=== PATIENT | female | born 1930 | race Caucasian/White ===

== ENCOUNTER 2017-10-15 12:23 | Emergency (ER) | payer MEDICARE, OTHER ==
[2017-10-15 14:58] LABS: #Monocytes 0.8 thou/uL (0.11-0.59); #Neutrophils 7.6 thou/uL (1.40-6.50); %Basophils 0.3 % (0.0-1.0); %Eosinophils 0.1 % (0.0-10.0); %Lymphocytes 18.8 % (21.0-51.0); Hematocrit 30.7 % (36.0-47.0); Mean Platelet Volume 7.3 fL (7.4-10.4); Red Blood Cell (RBC) Count 3.11 mill/uL (4.20-5.40); White Blood Cell (WBC) Count 10.4 thou/uL (4.8-10.8)
[2017-10-15 15:15] LABS: Lactic Acid - Sepsis 0.8 mmol/L (0.5-2.2)
[2017-10-15 15:20] LABS: ALT (SGPT) 64 U/L (8-55); AST (SGOT) 120 U/L (5-34); Alkaline Phosphatase 826 U/L (40-150); Anion Gap 13 mmol/L (10-20); BUN (Urea Nitrogen) 15 mg/dL (9.8-20.1); Bilirubin, Total 2.8 mg/dL (0.2-1.2); CK (CPK) 14 U/L (29-168); Calc. Creatinine Clearance 0 mL/min (70-130); Calcium 7.6 mg/dL (7.8-10.44); Carbon Dioxide 27 mmol/L (23-31); Chloride 96 mmol/L (98-107); Estimated GFR-MDRD 51; Globulin 2.9 g/dL (2.4-3.5)
[2017-10-15 15:23] LABS: Bacteria/HPF 4+ HPF (None Seen); Bilirubin Small (Negative); Blood, Urine Trace (Negative); Glucose, Urine (Dipstick) Negative (Negative); Ketone, Urine Negative (Negative); Nitrite Positive (Negative); Protein, Urine (Dipstick) Trace mg/dL (Neg-Trace); RBC/HPF 21-50 HPF (0-3); Squamous Epithelial 0-3 HPF (0-3); Urobilinogen 0.2 mg/dL (0.2-1.0)
[2017-10-15] MEDS ORDERED: MEROPENEM 1 GM/50 ML 1 GM in Premix Bag 1 BAG IVPB SCH (15:30)
[2017-10-15] MEDS ORDERED: Meropenem 1 GM in Sodium Chloride 0.9% 100 ML IVPB SCH (15:30)
[2017-10-15 15:33] LABS: Hyaline Casts/LPF NONE SEEN LPF (0-3 Hyaline); Yeast-All Forms 2+ HPF (None Seen)
[2017-10-15] MEDS ORDERED: Potassium Chloride 20 MEQ TAB ONE (15:44)
--- NOTE | 2017-10-15 16:46 | SPC ---
EXAM: LEFT UPPER EXTREMITY PICC LINE PLACEMENT WITH ULTRASOUND GUIDANCE 10/15/17 HISTORY: Patient has cancer of the liver. IV access is required. COMPARISON: None. EXPOSURE: 0.5 minutes. 1599 mGy*cm2. FINDINGS: Technically successful left upper extremity PICC line placement with ultrasound guidance. Dual lumen 5 Japanese catheter terminates at the level of the SVC/right atrial junction. Trim length is 42 cm. Bot h lumens flushed and aspirated without difficulty. TECHNIQUE: Consent obtained to perform a left upper extremity PICC line placement. The left arm was prepped and draped in the sterile fashion. 1% lidocaine, buffered with sodium bicarbonate used for local anesthes ia. Under sonographic guidance, micropuncture needle was used to cannulate the brachial vein. A 0.018 guide wire was advanced through the needle to the level of the superior vena cava. Under fluoroscopy , the wire was advanced to the inferior vena cava to document venous access. Wire was subsequently pu lled back to the SVC/right atrial junction. Tract is dilated. Dual lumen 5 Japanese catheter was advanc ed over the wire. Wire was removed. Both lumens flushed and aspirated without difficulty. Trim length is 42 cm. IMPRESSION: Technically successful ultrasound guided left upper extremity PICC line placement. POS: [facility]
[2017-10-15] MEDS ORDERED: Heparin 1,000 UNITS/ML VIAL ONE (17:00)
== END 2017-10-15 18:13 ==
LOC: ERS 12:23
DX: R78.81 Bacteremia (principal)
CPT/HCPCS: 36415; 36569; 80053; 81003; 81015; 82550; 83605; 85025; 96365; J1644; J2185; J7050

== ENCOUNTER 2017-10-16 14:33 | Inpatient (IN) | payer MEDICARE, OTHER ==
[2017-10-16] MEDS ORDERED: Polyethylene Glycol 3350 17 GM Packet PO PRN (15:08)
[2017-10-16] MEDS ORDERED: Eucerin (Mineral Oil/Petrolatum,White) 30 gm Jar TOP PRN (15:08)
[2017-10-16] MEDS ORDERED: Ondansetron ODT 4 MG TAB PO PRN (15:08)
[2017-10-16] MEDS ORDERED: Acetaminophen 325 MG TAB PO PRN ×2 (15:08→18:30)
[2017-10-16] MEDS ORDERED: Diabetic Tussin 200 MG/10 ML UDCUP PO PRN (15:08)
[2017-10-16] MEDS ORDERED: Senokot 8.6 MG TAB PO PRN (15:08)
[2017-10-16] MEDS ORDERED: Ondansetron HCl/PF 4 MG/2 ML Vial IVP PRN (15:08)
[2017-10-16] MEDS ORDERED: Sodium Chloride 0.9% 1,000 ML IV SCH (15:15)
[2017-10-16 15:40] LABS: #Basophils 0.1 thou/uL (0.0-0.2); #Lymphocytes 2.2 thou/uL (1.20-3.40); #Monocytes 0.6 thou/uL (0.11-0.59); #Neutrophils 5.1 thou/uL (1.40-6.50); %Basophils 0.9 % (0.0-1.0); %Eosinophils 0.3 % (0.0-10.0); %Lymphocytes 28.2 % (21.0-51.0); %Monocytes 6.9 % (0.0-10.0); Hematocrit 28.2 % (36.0-47.0); Mean Platelet Volume 7.3 fL (7.4-10.4); Red Blood Cell (RBC) Count 2.85 mill/uL (4.20-5.40); White Blood Cell (WBC) Count 7.9 thou/uL (4.8-10.8)
--- NOTE | 2017-10-16 15:40 | RAD ---
PORTABLE CHEST 10/16/17 COMPARISON: 08/14/17 study. HISTORY: Sepsis, bacteremia. Heart size is within normal limits. Left sided PICC line is present. There has been development of bi lateral pleural effusions with bibasilar lung changes probably on the basis of atelectasis versus ear ly infiltrate. IMPRESSION: Small bilateral pleural effusions with bibasilar lung changes right greater than left probably relate d to atelectasis versus possibly some developing infiltrate in the right base. POS: [facility]
[2017-10-16 16:03] LABS: ALT (SGPT) 64 U/L (8-55); AST (SGOT) 126 U/L (5-34); Alkaline Phosphatase 849 U/L (40-150); Anion Gap 11 mmol/L (10-20); BUN (Urea Nitrogen) 14 mg/dL (9.8-20.1); Bilirubin, Total 2.9 mg/dL (0.2-1.2); Calc. Creatinine Clearance 47 mL/min (70-130); Calcium 7.5 mg/dL (7.8-10.44); Carbon Dioxide 27 mmol/L (23-31); Chloride 99 mmol/L (98-107); Estimated GFR-MDRD 54; Globulin 2.8 g/dL (2.4-3.5); Lipase 34 U/L (8-78); Magnesium 1.1 mg/dL (1.6-2.6); Phosphorus 2.5 mg/dL (2.3-4.7); Protein, Total 4.8 g/dL (6.0-8.3)
[2017-10-16] MEDS ORDERED: Magnesium Sulfate 4 GM in Sodium Chloride 0.9% 250 ML 250 ML IVPB SCH (16:45)
[2017-10-16] MEDS: Meropenem 1 GM, Admixture Fee 1 EACH in Sodium Chloride 0.9% 100 ML IVPB SCH (17:07)
[2017-10-16] MEDS ORDERED: ISOVUE-370 76%-LOCM 1 ML ONE (17:24)
[2017-10-16] MEDS: Vancomycin HCl 1 GM in Premix Bag 1 BAG IVPB SCH (18:19)
--- NOTE | 2017-10-16 19:23 | HP ---
DATE OF ADMISSION: 10/16/2017 PRIMARY CARE PHYSICIAN: Dr. Kareem Jay. PRIMARY BIOMEDICAL ENGINEERING SUPERVISOR: Dr. Faustin. CHIEF COMPLAINT/REASON FOR ADMISSION: Positive blood cultures. 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 Patient was admitted at this facility in July of this year with abnormal LFTs. Her workup was consistent with intrahepatic mass suspected to be cholangiocarcinoma. She was seen by Gastroenterology, Dr. Faustin. She was discharged home and underwent an outpatient biliary stent placement at [place] on 10/17/2017. The patient then moved to [place] with her daughter. While in [place], patient was admitted to [facility] on with abdominal discomfort. She was found to have acute kidney injury with creatinine 3.[address] scan of the abdomen and pelvis was consistent with 14 cm cyst in the left lobe of the liver with mass effect. A CT -guided drain was placed draining around 1500 mL of brownish yellow fluid. Cultures from the fluid showed Enterococcus. She remained on Augmentin until 2 days ago. She was seen by Dr. Faustin 3 days ago. Blood cultures were done after completion of the antibiotic that was positive for gram negative josé miguel. Later blood cultures showed Klebsiella pneumoniae. She presented to the emergency room yesterday and was discharged back after PICC line placement. The patient was sent back to the hospital as a direct admit for antibiotic recommendation by Dr. Nelson. PAST MEDICAL HISTORY: 1. Hypertension. 2. 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 3. Chronic indwelling Rascon catheter due to urinary retention. 4. Enterococcus infection, completed Augmentin on 10/13/2017. 5. History of transient ischemic attack. PAST SURGICAL HISTORY: Biliary stent placement in July, PICC line placement yesterday and abdominal drain placed on 09/14/2017 at [place]. ALLERGIES: No known drug allergies. CURRENT HOME MEDICATIONS: Carvedilol 12.5 mg b.i.d., Floranex 1 tablet b.i.d., losartan 50 mg daily, Zofran as needed and potassium chloride 20 mEq daily. SOCIAL HISTORY: Patient is currently in [facility] facility at [facility] due to profound deconditioning. She denies any history of smoking, alcohol or drug use. FAMILY HISTORY: Negative for premature coronary artery disease. REVIEW OF SYSTEMS: The following complete review of systems was negative, unless otherwise mentioned in the HPI or below: CONSTITUTIONAL: Weight loss or gain, ability to conduct usual activities. SKIN: Rash, itching. EYES: Double vision, pain. ENT/MOUTH: Nose bleeding, neck stiffness, pain, tenderness. CARDIOVASCULAR: Palpitations, dyspnea on exertion, orthopnea. RESPIRATORY: Shortness of breath, wheezing, cough, hemoptysis, fever or night sweats. GASTROINTESTINAL: Poor appetite, abdominal pain, heartburn, nausea, vomiting, constipation, or diarrhea. GENITOURINARY: Urgency, frequency, dysuria, nocturia. MUSCULOSKELETAL: Pain, swelling. NEUROLOGIC/PSYCHIATRIC: Anxiety, depression. ALLERGY/IMMUNOLOGIC: Skin rash, bleeding tendency. PHYSICAL EXAMINATION: VITAL SIGNS: Temperature 97.9, respiration 16, pulse rate of 90, blood pressure of 120/77 with O2 saturation 100% on room air. GENERAL: An 86-year-old female in no apparent distress. Denies any pain. HEENT: Head atraumatic, normocephalic. Sclerae are anicteric. Moist mucous membranes. No oral lesion. NECK: Supple, no JVD appreciated. No carotid bruit. LUNGS: Clear to auscultation bilaterally with diminished air entry at bases. HEART: S1, S2 present. Regular rate and rhythm. No murmur, rubs, or gallops appreciated. ABDOMEN: Soft. No rebound, guarding, intraabdominal drain noted with scanty amount of brownish liquid. Bowel sounds are present. EXTREMITIES: 2+ edema in bilateral lower extremities with calf tenderness. SKIN: Warm and dry. LYMPH NODES: No palpable lymph nodes in the neck. PERIPHERAL VASCULAR: Radial pulses palpable bilaterally. MUSCULOSKELETAL: No joint swelling or tenderness. LYMPH NODES: No palpable lymph nodes in the neck. LABORATORY FINDINGS: 1. CBC showed a WBC 7.9, hemoglobin 9.4, hematocrit 28.2, platelet of 160. Chemistries showed sodium 133, potassium 3.6, chloride of 99, bicarbonate of 27 , BUN of 14, creatinine 0.98, glucose of 81. Lactic acid 0.8, calcium 7.5, phosphorus 2.5, magnesium 1.1. 2. LFTs showed total bilirubin 2.9, AST 126, ALT 64, alkaline phosphatase 849. CRP was 12.8, albumin was 2.0 with total protein of 4.8, lactic acid was 0.8. Repeat blood and urine cultures have been sent. Chest x-ray by my review showed small bilateral pleural effusion with bibasilar atelectasis. IMPRESSION: 1. Klebsiella pneumonia bacteremia suspected source appears to be intraabdominal. 2. Escherichia coli urinary tract infection. 3. Cholangiocarcinoma with liver abscess with indwelling intraabdominal drain. 4. Status post PICC line placement on 10/15/2017. 5. Urinary retention with indwelling Rascon catheter that was changed last week. 6. Hyperlipidemia. 7. Hypertension. 8. History of transient ischemic attack. 9. Moderate protein-calorie malnutrition. 10. Hypomagnesemia with magnesium 1.1. 11. Hypoglycemia secondary to poor appetite. 12. Abnormal liver function tests, probably secondary to cholangiocarcinoma. 13. Chronic anemia, normocytic. 14. Physical deconditioning. 15. Bilateral lower extremity swelling with tenderness, rule out deep venous thrombosis. PLAN: The patient will be monitored on the medical floor. CT scan of the abdomen and pelvis with oral and IV contrast will be obtained. Infectious Disease and GI will be consulted. Empiric antibiotics with vancomycin and meropenem will be initiated. The klebsiella pneumonia is only sensitive to Bactrim. We will discuss with Dr. Nelson. DVT prophylaxis with heparin. We will also rule out DVT due to recent immobilization and lack of activity. Dietitian will be consulted for dietary recommendations. The patient's albumin is 2.0. We will continue potassium supplementation. Patient had hypokalemia yesterday with potassium 3.0. We will repeat labs in a.m. Plan of care was discussed with the patient and the family at the bedside. They stated understanding. CODE STATUS: FULL CODE. The patient makes her own decisions with the help of her family. The patient will require 3-4 days for stabilization. MTDD
[2017-10-16 19:42] LABS: Bilirubin Small (Negative); Blood, Urine Negative (Negative); Glucose, Urine (Dipstick) Negative (Negative); Ketone, Urine Negative (Negative); Nitrite Positive (Negative); Protein, Urine (Dipstick) Trace mg/dL (Neg-Trace)
[2017-10-16 19:44] LABS: Bacteria/HPF 4+ HPF (None Seen); Squamous Epithelial None Seen HPF (0-3)
[2017-10-16 19:56] LABS: Yeast-All Forms 1+ HPF (None Seen)
--- NOTE | 2017-10-16 20:40 | CT ---
CT ABDOMEN AND PELVIS WITH CONTRAST 10/16/17 HISTORY: Sepsis. COMPARISON: CT abdomen and pelvis 08/14/17. FINDINGS: There are large bilateral layering pleural effusions. No pericardial effusion. Severe intrahepatic b iliary dilatation. This is predominantly of the right sided biliary system. The left sided biliary sy stem appears to be drained via the CBD stent. The hepatic mass appears to be increasing in size, now measuring approximately 4.5 x 4.8 cm, previous ly 3.6 x 4.2 cm. There is a drain on the gastrohepatic ligament with peripherally enhancing collection deep to this an d along the left sided margin of the liver with subcapsular spread of fluid. This attenuates along th e caudate lobe. Overall, this collection in greatest dimensions measures 2.7 x 2.7 x approximately 7. 7 cm. Soft tissue mass surrounds the gastroduodenal artery. There is edema within both flanks. Aortic contour is nonaneurysmal. There are bilateral renal cysts. Moderate degenerative disc space disease of the lower lumbar spine. IMPRESSION: 1. Peripherally enhancing fluid collection deep to the gastrohepatic drain measuring 2.7 x 2.7 x approximately 7.7 cm. 2. Adequately drained left intrahepatic biliary system with continued obstruction right intrahep atic biliary system. 3. Interval slight increase of the hepatic mass with mass surrounding the gastroduodenal artery. POS: [facility]
[2017-10-16] MEDS: Sodium Chloride 0.9% 1,000 ML IV SCH (21:00)
[2017-10-16] MEDS ORDERED: Famotidine 20 MG TAB PO SCH (21:00)
[2017-10-16] MEDS: Lactinex Tablet PO SCH (21:07)
[2017-10-16] MEDS: Docusate 100 MG CAP PO SCH (21:07)
[2017-10-16] MEDS: Heparin 5,000 UNITS/ML VIAL SC SCH (21:07)
[2017-10-17] MEDS: Meropenem 1 GM, Admixture Fee 1 EACH in Sodium Chloride 0.9% 100 ML IVPB SCH ×4 (00:32→23:51)
[2017-10-17 04:27] LABS: #Basophils 0.1 thou/uL (0.0-0.2); #Eosinphils 0.1 thou/uL (0.0-0.7); #Monocytes 0.6 thou/uL (0.11-0.59); #Neutrophils 3.7 thou/uL (1.40-6.50); %Basophils 0.9 % (0.0-1.0); %Eosinophils 1.1 % (0.0-10.0); %Lymphocytes 31.9 % (21.0-51.0); %Monocytes 9.3 % (0.0-10.0); Hematocrit 27.1 % (36.0-47.0); Mean Platelet Volume 7.1 fL (7.4-10.4); Red Blood Cell (RBC) Count 2.73 mill/uL (4.20-5.40); White Blood Cell (WBC) Count 6.4 thou/uL (4.8-10.8)
[2017-10-17 04:29] LABS: PTT 34.9 SEC (22.9-36.1); Prothrombin Time 15.2 SEC (12.0-14.7)
[2017-10-17 04:42] LABS: ALT (SGPT) 62 U/L (8-55); AST (SGOT) 121 U/L (5-34); Alkaline Phosphatase 777 U/L (40-150); Anion Gap 11 mmol/L (10-20); BUN (Urea Nitrogen) 12 mg/dL (9.8-20.1); Bilirubin, Total 2.7 mg/dL (0.2-1.2); Calc. Creatinine Clearance 50 mL/min (70-130); Calcium 7.3 mg/dL (7.8-10.44); Carbon Dioxide 27 mmol/L (23-31); Chloride 100 mmol/L (98-107); Estimated GFR-MDRD 59; Globulin 2.6 g/dL (2.4-3.5); Magnesium 2.2 mg/dL (1.6-2.6); Phosphorus 2.4 mg/dL (2.3-4.7); Protein, Total 4.4 g/dL (6.0-8.3)
[2017-10-17] MEDS ORDERED: Carvedilol 3.125 MG TAB PO SCH (08:00)
[2017-10-17] MEDS: Docusate 100 MG CAP PO SCH ×2 (08:23→20:43)
[2017-10-17] MEDS: Famotidine 20 MG TAB PO SCH (08:24)
[2017-10-17] MEDS: Carvedilol 6.25 MG TAB PO SCH ×2 (08:24→16:49)
[2017-10-17] MEDS: Potassium Chloride 20 MEQ TAB PO SCH (08:25)
[2017-10-17] MEDS: Saccharomyces boulardii 250 MG CAP PO SCH (08:26)
[2017-10-17] MEDS: Multivit, Therapeutic 1 TAB PO SCH (08:26)
[2017-10-17] MEDS: Lactinex Tablet PO SCH ×2 (08:27→20:44)
[2017-10-17] MEDS: Heparin 5,000 UNITS/ML VIAL SC SCH ×2 (08:27→20:45)
[2017-10-17] MEDS ORDERED: Folic Acid 1 MG TAB PO SCH (09:00)
[2017-10-17] MEDS ORDERED: FLU VACC TS2017-18 (>65YR) 0.5 ML SYRINGE IM ONE (09:00)
[2017-10-17] MEDS ORDERED: Cyanocobalamin (Vitamin B-12) 1,000 MCG TAB PO SCH (09:00)
--- NOTE | 2017-10-17 11:13 | ULT ---
BILATERAL LOWER EXTREMITY VENOUS DUPLEX EXAM: Date: 10/17/17 HISTORY: Bilateral leg edema and pain. FINDINGS: Real-time color Doppler evaluation of the right and left lower extremity was performed from groin to calf. This includes evaluation of the common femoral, superficial and profunda femoral, saphenous, po pliteal, and trifurcation veins. This shows patent deep venous systems bilaterally. There is normal c ompressibility and augmentation. There is no evidence of deep venous thrombosis. Within the right groin is a 1.7 x 3.3 cm fluid density collection which does not show any flow. In re viewing the previous CT examination of 10/16/17 study, there is some fluid density in this region. It may actually arise from the inguinal canal. It is not felt to be of any significance. It does not ap pear to represent bowel. IMPRESSION: No evidence of deep venous thrombosis of either lower extremity. POS: [facility]
[2017-10-17] MEDS: Sodium Chloride 0.9% 1,000 ML IV SCH (14:23)
--- NOTE | 2017-10-17 16:41 | CON ---
DATE OF CONSULTATION: 10/17/2017 GASTROENTEROLOGY CONSULTATION CHIEF COMPLAINT: Weakness and positive blood cultures. HISTORY OF PRESENT ILLNESS: Ms. Goldman is an 86-year-old woman who presented in 07/2017 with epiga stric pain and elevated liver tests and was found to have a cholangiocarcinoma, presented with a Klat skin tumor and she was then referred for ERCP in [place] by Dr. Loving. He performed SpyGlass and biopsies and confirmed cholangiocarcinoma diagnosis. Two metal stents were then placed in the bile duct. The patient was then referred to Oncology and the family took her to [place] to see an onc ologist and while there she became sick and weak and she was admitted to the hospital for further car e. She was found to have a large abscess in the liver and a percutaneous drain was then placed. The family reports that 1500 mL of white pus were aspirated with the drain and she was then started on a 5-week course of antibiotics. She was initially treated with IV antibiotics for the first 3 weeks a nd then oral antibiotics for a couple weeks which she just finished a few days ago. While she was in the hospital in [place], she developed some rectal bleeding and underwent a colonoscopy. She wa s found to have a metal stent that the lower metal stent had migrated out of the bile duct and into t he intestine. This was removed by colonoscopy. She saw Dr. Faustin in the clinic on 10/14/2017. She was eating okay and was not having any abdominal pain. At this point, the service in [place] hall d recommended checking blood cultures and removing the percutaneous drain. She has been at the [facility] and blood cultures were drawn. These blood cultures came back positive for Klebsiella and th erefore, the patient was sent back to the hospital now for further treatment. Currently, she reports no abdominal pain, no nausea or vomiting, no diarrhea or constipation. No fever, no other significa nt complaints. She had been weaker and sleeping more over the last few weeks; however, this past wee k she has been feeling better. In light of the positive blood cultures, she has been started on broa d spectrum antibiotics with meropenem and vancomycin. Repeat blood culture here in the hospital have grown gram negative rods. Blood culture from 10/14/2017 grew Klebsiella pneumoniae in 2 sets, urine culture back in 07/2017 that grew E. coli. PAST MEDICAL HISTORY: Cholangiocarcinoma, perihepatic abscess, hypertension, hyperlipidemia. PAST SURGICAL HISTORY: She has had a PICC line placed recently and she has an abdominal percutaneous abscess drain in place. She has a metal biliary stent in place. FAMILY HISTORY: Negative for GI malignancy. SOCIAL HISTORY: No alcohol, tobacco or drugs. She is a resident at [facility]. ALLERGIES: No known drug allergies. MEDICATIONS AT HOME: Carvedilol, colistimethate, docusate, famotidine, folic acid, heparin 5000 unit s subcu b.i.d., meropenem, vancomycin. She has been on probiotics at home. REVIEW OF SYSTEMS: Negative x10 systems review except as stated in the history of present illness. PHYSICAL EXAMINATION: VITAL SIGNS: Temperature 97.6, pulse 76, blood pressure 109/68. GENERAL: She is in no acute distress, alert and oriented x3. EYES: Have no scleral icterus. OROPHARYNX: Clear without lesions. NECK: No cervical or supraclavicular lymphadenopathy. LUNGS: Clear to auscultation bilaterally. HEART: Regular rate and rhythm without murmur. ABDOMEN: Soft, nontender, and nondistended. Bowel sounds are present. EXTREMITIES: No lower extremity edema. She has a percutaneous drain in place in the epigastric fco on. Cranial nerves are grossly intact. LABORATORY DATA: White blood cell count 6.4, hemoglobin 8.8, platelets 143, INR 1.2. Bilirubin 2.7, AST 121, ALT 62, alkaline phosphatase 777, albumin 1.8, creatinine 0.91. IMPRESSION: 1. Cholangiocarcinoma. She has opted for no treatment for this. She discussed with her oncologist' s options including chemotherapy, chemoembolization, and radiation therapy. She is ultimately opted for no specific treatment. 2. Perihepatic abscess. She had a large abscess drained and has percutaneous drain still in place. CT scan now shows another fluid collection which may be subcapsular and separate from the original d rain. On review with Radiology, they felt that this is not likely accessible given its proximity to the erika hepatis and great vessels. Her current drain is having minimal output at this point. 3. 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 She has a metal biliary stent in place. 4. Protein calorie malnutrition. RECOMMENDATIONS: She is being evaluated by Dr. Nelson. She has a PICC line in place for IV antibioti cs. If replacement of the drain is not an option, then supportive care and IV antibiotics will be di rected by Dr. Nelson. We will await his input.
[2017-10-17] MEDS: Vancomycin HCl 1 GM in Premix Bag 1 BAG IVPB SCH (16:49)
--- NOTE | 2017-10-17 18:49 | PDOC.PN ---
- Subjective Encounter Start Date: 10/17/17 Encounter Start Time: 08:00 Patient seen and examined. No new complaints. No overnight events. Feels the same. No N/V - Objective Resuscitation Status: Resuscitation Status FULL:Full Resuscitation MAR Reviewed: Yes Vital Signs & Weight: Vital Signs (12 hours) Temp Pulse Resp BP BP Pulse Ox 10/17/17 16:49 94/56 L 10/17/17 16:00 97.6 F 68 91 H 94/56 L 16 L 10/17/17 12:44 97.6 F 76 18 109/68 94 L 10/17/17 08:24 123/73 10/17/17 08:00 97.4 F L 62 18 123/73 96 Weight Admit Weight 152 lb 8.006 oz Weight 152 lb 8.006 oz I&O: 10/16/17 10/17/17 10/18/17 06:59 06:59 06:59 Intake Total 1630 200 Output Total 675 Balance 955 200 Result Diagrams: 10/17/17 03:51 10/17/17 03:51 Additional Labs: Accuchecks 10/17/17 10/17/17 10/17/17 16:49 11:31 04:44 POC Glucose 114 H 84 81 10/17/17 00:43 POC Glucose 92 Radiology Reviewed by me: No (Doppler - no DVT) Phys Exam - Physical Examination Constitutional: NAD Respiratory: no wheezing, no rales, no rhonchi Dec AE at bases Cardiovascular: RRR, no rub no heaves/pulsations Gastrointestinal: soft, non-tender, no distention, positive bowel sounds Abd drain + Musculoskeletal: pulses present, edema present Neurological: non-focal, normal sensation, moves all 4 limbs Dx/Plan - Plan cont current plan of care, plan discussed w/ family, roberto catheter, PT/OT, DVT proph w/SCDs IMPRESSION: 1. Klebsiella pneumonia bacteremia/Perihepatic abscess. 2. Escherichia coli urinary tract infection. 3. Cholangiocarcinoma - declined treatment 4. Status post PICC line placement on 10/15/2017. 5. Urinary retention with indwelling Roberto catheter that was changed last week. 6. Hyperlipidemia. 7. Hypertension. 8. History of transient ischemic attack. 9. Moderate protein-calorie malnutrition. 10. Hypomagnesemia - replaced 11. Hypoglycemia secondary to poor appetite. 12. Abnormal liver function tests, probably secondary to cholangiocarcinoma. 13. Chronic anemia, normocytic. 14. Physical deconditioning. 15. Bilateral lower extremity swelling with tenderness, rule out deep venous thrombosis. PLAN: * Cont Atbx * DVT ruled out * Cont Vancomycin and Meropenem * Await GI/ID input * Cont other meds as below * AM labs Review of Systems - Review of Systems Respiratory: negative: Cough, Dry, Shortness of Breath, Hemoptysis, SOB with Excertion, Pleuritic Pain, Sputum, Wheezing Cardiovascular: negative: Chest Pain, Palpitations, Orthopnea, Paroxysmal Noc. Dyspnea, Edema, Light Headedness, Other Gastrointestinal: negative: Nausea, Vomiting, Abdominal Pain, Diarrhea, Constipation, Melena, Hematochezia, Other - Medications/Allergies Allergies/Adverse Reactions: Allergies Allergy/AdvReac Type Severity Reaction Status Date / Time No Known Allergies Allergy Verified 08/14/17 17:19 Medications: Current Medications Acetaminophen (Tylenol) 325 mg PO Q6H PRN PRN Reason: Headache/Fever or Pain Acidophilus (Floranex) 1 tab PO BID [facility] Last Admin: 10/17/17 08:27 Dose: 1 tab Carvedilol (Coreg) 6.25 mg PO BID-WM [facility] Last Admin: 10/17/17 16:49 Dose: Not Given Docusate Sodium (Colace) 100 mg PO BID [facility] Last Admin: 10/17/17 08:23 Dose: Not Given Famotidine (Pepcid) 20 mg PO QAM [facility] Last Admin: 10/17/17 08:24 Dose: Not Given Folic Acid (Folvite) 1 mg PO BID [facility] Guaifenesin (Robitussin Sf) 200 mg PO Q4H PRN PRN Reason: Cough Heparin Sodium (Porcine) (Heparin) 5,000 units SC BID [facility] Last Admin: 10/17/17 08:27 Dose: Not Given Meropenem 1 gm/ Miscellaneous Medication 1 each/ Sodium Chloride 100 mls @ 200 mls/hr IVPB 0800,1600,2359 [facility] Last Admin: 10/17/17 15:28 Dose: 100 mls Vancomycin HCl 1 gm/ Device 200 mls @ 200 mls/hr IVPB 1700 [facility] Last Admin: 10/17/17 16:49 Dose: 200 mls Sodium Chloride (Normal Saline 0.9%) 1,000 mls @ 50 mls/hr IV .Q20H [facility] Last Admin: 10/17/17 14:23 Dose: Not Given Colistimethate Sodium 275 mg/ (Sodium Chloride) 50 mls @ 100 mls/hr IVPB 1000 [facility] Last Admin: 10/17/17 11:12 Dose: 50 mls Colistimethate Sodium 112 mg/ (Sodium Chloride) 50 mls @ 100 mls/hr IVPB 1000, 2200 [facility] Mineral Oil/White Petrolatum (Eucerin Cream) 0 gm TOP BIDPRN PRN PRN Reason: Dry Skin Miscellaneous Medication (Pharmacy To Dose) 1 each IVPB PRN PRN PRN Reason: Pharmacy to dose Multivitamins (Theragran) 1 tab PO DAILY [facility] Last Admin: 10/17/17 08:26 Dose: 1 tab Ondansetron HCl (Zofran Odt) 4 mg PO Q6H PRN PRN Reason: Nausea/Vomiting Ondansetron HCl (Zofran) 4 mg IVP Q6H PRN PRN Reason: Nausea/Vomiting Polyethylene Glycol (Miralax) 17 gm PO DAILY PRN PRN Reason: Constipation Potassium Chloride (K-Dur) 20 meq PO QAM-WM [facility] Last Admin: 10/17/17 08:25 Dose: 20 meq Saccharomyces Boulardii (Florastor) 250 mg PO DAILY [facility] Last Admin: 10/17/17 08:26 Dose: 250 mg Senna (Senokot) 2 tab PO HSPRN PRN PRN Reason: Constipation Sodium Chloride (Flush - Normal Saline) 10 ml IVF Q12HR [facility] Last Admin: 10/17/17 08:28 Dose: Not Given Sodium Chloride (Flush - Normal Saline) 10 ml IVF PRN PRN PRN Reason: Saline Flush
[2017-10-17] MEDS: Folic Acid 1 MG TAB PO SCH (20:45)
[2017-10-18 04:37] LABS: #Eosinphils 0.2 thou/uL (0.0-0.7); #Lymphocytes 2.6 thou/uL (1.20-3.40); #Monocytes 0.7 thou/uL (0.11-0.59); #Neutrophils 3.5 thou/uL (1.40-6.50); %Basophils 0.6 % (0.0-1.0); %Eosinophils 2.6 % (0.0-10.0); %Lymphocytes 36.6 % (21.0-51.0); %Monocytes 10.4 % (0.0-10.0); Hematocrit 26.6 % (36.0-47.0); Mean Platelet Volume 7.4 fL (7.4-10.4); Red Blood Cell (RBC) Count 2.66 mill/uL (4.20-5.40)
[2017-10-18 04:46] LABS: Anion Gap 8 mmol/L (10-20); BUN (Urea Nitrogen) 13 mg/dL (9.8-20.1); BUN/Creatinine Ratio 12.87; Calc. Creatinine Clearance 45 mL/min (70-130); Calcium 7.2 mg/dL (7.8-10.44); Carbon Dioxide 28 mmol/L (23-31); Chloride 102 mmol/L (98-107); Estimated GFR-MDRD 52; Magnesium 1.8 mg/dL (1.6-2.6); Phosphorus 2.6 mg/dL (2.3-4.7)
--- NOTE | 2017-10-18 06:59 | CON ---
DATE OF CONSULTATION: 10/17/2017 REASON FOR CONSULTATION: Bacteremia. HISTORY OF PRESENT ILLNESS: An 86-year-old with history of hypertension, recently diagnosed cholangiocarcinoma, who received biliary stent placement in [place] in 10/17 and then apparently went [place] for second opinion. She was then admitted to [facility], was found to have renal insufficiency with creatinine 3.[address] of abdomen showed 14 cm liver mass. A CT-guided drainage was performed and 1500 mL of purulent fluid was obtained with cultures demonstrating Enterococcus species. This was broadly sensitive and she was given 3 weeks of intravenous antimicrobial therapy and then transitioned to oral Augmentin which she took for 2 weeks. She was seen by Dr. Faustin and apparently blood cultures were submitted and those turned up on my desk in the clinic and I realized that the organism is highly resistant pathogen , the patient was directed to be admitted. Currently, she is awake. Daughter is in the room with her. Denies any headaches, no visual symptoms, sore throat , odynophagia, dysphagia, no cough, or sputum production, or chest pain. She has a little bit of dyspnea, much less abdominal pain than before. She has issues with urinary retention and has had a Rascon catheter now for about a month and a half. No joint symptoms. No neurological symptoms. PAST MEDICAL HISTORY: Hypertension; cholangiocarcinoma with palliative stent placement, no intention for any type of treatment desired by patient; enterococcal infection; liver abscess, recently aspirated in [facility], having completed 3 weeks course of IV antimicrobial therapy and then 2 weeks course of oral Augmentin; prior TIA. PAST SURGICAL HISTORY: As above, PICC line placement and then replacement just a day before yesterday. She also had a biliary catheter placed in [place] for drainage of the biliary tract. ALLERGIES: None. CURRENT MEDICATIONS: Tylenol, Floranex and Coreg. She has been started on colistin and meropenem, IV fluids, multivitamins, ondansetron, Miralax, potassium, Florastor, and vancomycin. FAMILY HISTORY: Noncontributory. PHYSICAL EXAMINATION: VITAL SIGNS: T-max 97.9, blood pressure 94/56, pulse 68, respirations 16, O2 sat 91%. SKIN: With no areas of skin breakdown. Patient has a PICC line inserted in the left upper extremity. She has a Rascon catheter in place. No lymphadenopathy. HEENT: Ocular movements are conjugate. Sclerae are white. Pupils are equal. Oral cavity with numerous teeth in place with some decay. NECK: Supple. No jugular vein distention or carotid bruits. No thyromegaly. LUNGS: With symmetric clear breath sounds. HEART: S1, S2, regular rate. No S3 or S4. ABDOMEN: With the right upper quadrant percutaneous drainage, biliary drain in place. Abdomen is soft. Not tender. No ascites. No bladder distention. EXTREMITIES: No joint inflammatory activity. Pulses are 1+ in dorsalis pedis. Plantar responses are flexor. Moves all extremities equally. NEUROLOGIC: Cognitive function appears to be intact. LABORATORY AND DIAGNOSTIC DATA: White cell count 7.9 and 6.4, hemoglobin 8.8, platelets 143, 56% neutrophils and 31% lymphocytes. INR 1.2. Sodium 134, creatinine 0.91 with AST 121, ALT 62, alkaline phosphatase 777 with albumin 1.8. Urinalysis greater than 50 wbc's. Microbiology with Klebsiella pneumoniae , which is highly resistant only intermediate to amikacin and susceptible to trimethoprim sulfamethoxazole. Chest x-ray with small bilateral pleural effusions, bibasilar lung changes, right greater than left and abdomen and pelvis CT with peripheral enhancing fluid collection deep to the gastrohepatic drain, measuring 2.7 x 7.7 cm and adequately drain left intrahepatic biliary system, which continued with obstruction of the right intrahepatic biliary system and with slight increase in hepatic mass with surrounding the gastroduodenal artery. ASSESSMENT: 1. Cholangiocarcinoma with biliary obstruction, status post stenting and percutaneous drainage. It is not clear if it truly has a stent, it looks like she does not, she probably has just a percutaneous drainage with palliative intent. 2. Liver abscess versus necrotic malignancy with superimposed infection. 3. Bacteremia with a highly resistant probably carbapenemase producing Klebsiella pneumoniae. DISCUSSION: The isolate is highly resistant to pretty much all available antimicrobials in the formulary except for Bactrim. She is admitted for adjustment of antimicrobial regimen with colistin plus meropenem. The patient surprisingly does not have signs to suggest sepsis at this point in time, but may become septic anytime. Evidently, this is an intervention that will have limited success in terms of resolution of infectious process due to the persistence of obstruction and the incurable malignancy. Discussions regarding palliative and hospice care should be entertained since she will likely experience recrudescence of the inflammatory process. The duration of therapy will be anywhere from 7-10 days and trying to avoid the renal insufficiency associated with colistin after that transition to oral Bactrim for 2-3 weeks. She can be transitioned to the [place] in 2 days approximately, although careful monitoring her for renal function will have to be undertaken. I would establish the endpoint of therapy around 10/27/2017. Repeat blood cultures in 2 -3 days to verify resolution of bacteremia. MTDD
[2017-10-18] MEDS: Carvedilol 6.25 MG TAB PO SCH ×2 (08:14→16:09)
[2017-10-18] MEDS: Meropenem 1 GM, Admixture Fee 1 EACH in Sodium Chloride 0.9% 100 ML IVPB SCH ×2 (08:15→15:51)
[2017-10-18] MEDS: Famotidine 20 MG TAB PO SCH (08:15)
[2017-10-18] MEDS: Saccharomyces boulardii 250 MG CAP PO SCH (08:15)
[2017-10-18] MEDS: Folic Acid 1 MG TAB PO SCH ×2 (08:16→20:49)
[2017-10-18] MEDS: Docusate 100 MG CAP PO SCH ×2 (08:16→20:28)
[2017-10-18] MEDS: Lactinex Tablet PO SCH ×2 (08:16→20:49)
[2017-10-18] MEDS: Heparin 5,000 UNITS/ML VIAL SC SCH ×2 (08:16→20:49)
[2017-10-18] MEDS: Multivit, Therapeutic 1 TAB PO SCH (08:16)
[2017-10-18] MEDS: Potassium Chloride 20 MEQ TAB PO SCH (08:16)
[2017-10-18] MEDS: Sodium Chloride 0.9% 1,000 ML IV SCH ×2 (09:38→20:49)
[2017-10-18] MEDS: SODIUM CHLORIDE 0.9% IVPB SCH ×2 (11:16→22:32)
[2017-10-18] MEDS: COLISTIMETHATE IVPB SCH ×2 (11:16→22:32)
--- NOTE | 2017-10-18 11:29 | PDOC.PN ---
- Subjective Encounter Start Date: 10/18/17 Encounter Start Time: 11:27 Ms. Goldman was seen today in follow-up of Liver abscess and Klebsiella bacteremia. She says she feels fine. She denies abdominal pain, and admits to a little nausea. She did feel a little dizzy earlier. - Objective Resuscitation Status: Resuscitation Status FULL:Full Resuscitation MAR Reviewed: Yes Vital Signs & Weight: Vital Signs (12 hours) Temp Pulse Resp BP BP Pulse Ox 10/18/17 08:14 94/56 L 10/18/17 08:00 97.8 F 82 20 93/60 92 L 10/18/17 04:00 97.5 F L 95 18 102/72 93 L 10/18/17 00:00 97.7 F 93 18 95/68 93 L Weight Admit Weight 152 lb 8.006 oz Weight 152 lb I&O: 10/17/17 10/18/17 10/19/17 06:59 06:59 06:59 Intake Total 1630 1125 360 Output Total 675 Balance 955 1125 360 Result Diagrams: 10/18/17 04:14 10/18/17 04:14 Additional Labs: Accuchecks 10/18/17 10/17/17 10/17/17 00:36 16:49 11:31 POC Glucose 87 114 H 84 Phys Exam - Physical Examination HEENT: PERRLA Respiratory: no wheezing, no rales, no rhonchi, clear to auscultation bilateral Cardiovascular: RRR, no significant murmur Gastrointestinal: soft, non-tender, positive bowel sounds Musculoskeletal: no edema Dx/Plan (1) Bacteremia due to Klebsiella pneumoniae Code(s): R78.81 - BACTEREMIA Status: Acute (2) Abscess, hepatic Code(s): K75.0 - ABSCESS OF LIVER Status: Acute (3) Hypertension Code(s): I10 - ESSENTIAL (PRIMARY) HYPERTENSION Status: Chronic (4) 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 Status: Suspected - Plan * Klebsiella Bacteremia- patient has been placed on Colistin, and will need this until 10/27, followed by Bactrim for 2-3 weeks * Liver abscess due to enterococcus- continue Meropenem and Vancomycin * HTN- blood pressure is running a bit low- may need to hold Coreg * Cholangiocarcinoma- patient has opted for no medical treatment * Await outpatient arrangements for Colistin.
[2017-10-18 16:35] LABS: Vancomycin, Trough 16.6 ug/mL
[2017-10-18] MEDS: Vancomycin HCl 1 GM in Premix Bag 1 BAG IVPB SCH (16:49)
--- NOTE | 2017-10-18 23:37 | PRG ---
DATE OF SERVICE: 10/18/2017 SUBJECTIVE: Ms. Goldman has no acute complaints today. Her percutaneous drain has very little outp ut. OBJECTIVE: VITAL SIGNS: Temperature 97.7, pulse 86, blood pressure 112/72. GENERAL: She is in no acute distress. She is alert and oriented x3. LUNGS: Clear to auscultation bilaterally. HEART: Regular rate and rhythm without murmur. ABDOMEN: Soft, nontender, nondistended. Bowel sounds are present. EXTREMITIES: No lower extremity edema. IMPRESSION: 1. Liver abscess with multidrug-resistant organisms. She has had a drain in place for the last 5 or 6 weeks. There does appear to be another fluid collection that may not be communicating with the dr barry; however, this is not apparently accessible by percutaneous drainage. Treatment at this point is IV antibiotics. She is being followed by Dr. Nelson for this and is awaiting arrangements for outpat ient antibiotic IV. 2. Cholangiocarcinoma. She has opted against aggressive treatment for this. 3. 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 She has a metal biliary stent in place. 4. Protein-calorie malnutrition. RECOMMENDATIONS: 1. She has a PICC line in place. She is awaiting arrangements for outpatient antibiotics. This is being followed by Dr. Nelson. 2. She ultimately will require hospice care for the cholangiocarcinoma. 3. I will sign off for now. Please call if GI can be of assistance. Currently, the patient is doin g well without pain. She is tolerating diet well.
[2017-10-19] MEDS: Meropenem 1 GM, Admixture Fee 1 EACH in Sodium Chloride 0.9% 100 ML IVPB SCH ×3 (00:40→16:47)
[2017-10-19] MEDS: Carvedilol 6.25 MG TAB PO SCH ×2 (08:38→16:52)
[2017-10-19] MEDS: Folic Acid 1 MG TAB PO SCH ×2 (08:40→21:33)
[2017-10-19] MEDS: Famotidine 20 MG TAB PO SCH (08:40)
[2017-10-19] MEDS: Lactinex Tablet PO SCH ×2 (08:40→21:33)
[2017-10-19] MEDS: Potassium Chloride 20 MEQ TAB PO SCH (08:40)
[2017-10-19] MEDS: Multivit, Therapeutic 1 TAB PO SCH (08:40)
[2017-10-19] MEDS: Saccharomyces boulardii 250 MG CAP PO SCH (08:40)
[2017-10-19] MEDS: Docusate 100 MG CAP PO SCH ×2 (08:41→21:34)
[2017-10-19] MEDS: Heparin 5,000 UNITS/ML VIAL SC SCH ×2 (08:41→21:34)
[2017-10-19] MEDS: SODIUM CHLORIDE 0.9% IVPB SCH ×2 (10:05→21:34)
[2017-10-19] MEDS: COLISTIMETHATE IVPB SCH ×2 (10:05→21:34)
--- NOTE | 2017-10-19 12:21 | PRG ---
DATE OF SERVICE: 10/19/2017 SUBJECTIVE: Ms. Goldman is feeling a little better. No headaches, no abdominal pain, no dyspnea, n o cough, no appendicular structure symptoms. OBJECTIVE: VITAL SIGNS: Temperature is normal, other vital signs normal. GENERAL: Appears chronically ill. HEENT: Ocular movements are conjugate. Oral cavity moist. LUNGS: With symmetric air entry. No crackles or wheezing. HEART: S1, S2, regular rate. ABDOMEN: Not tender. EXTREMITIES: Moves all extremities equally. LABORATORY DATA: White cell count 7.0, hemoglobin 8.8, platelets 132. Creatinine 1.01, sodium 134, albumin 1.8. Urinalysis with greater than 50 wbc's. Urine culture with Klebsiella pneumoniae, pendi ng susceptibilities. ASSESSMENT AND DISCUSSION: 1. Cholangiocarcinoma with biliary obstruction, status post stenting/percutaneous drainage for palli ative drainage of the biliary obstruction. 2. Liver abscess versus necrotic malignancy with possible superimposed infection. 3. Bacteremia secondary to highly resistant, likely carbapenemase producing Klebsiella pneumoniae. 4. Urinary tract infection. It looks like to Klebsiella bacteremia secondary to the urinary tract i nfection, continue meropenem and Colistin for a total of 10-14 days and then discontinue treatment. Patient apparently needs a Rascon catheter for urinary retention. This may have to be revisited, but most likely she will continue to maintain the urinary catheter since she failed a voiding trial in e past.
--- NOTE | 2017-10-19 15:22 | PDOC.PN ---
- Subjective Encounter Start Date: 10/19/17 Encounter Start Time: 15:20 Ms. Goldman was seen today in follow-up for Liver abscess and UTI. She does not have any complaints, except for some dizziness when she got up with therapy. She denies any abdominal pain. - Objective Resuscitation Status: Resuscitation Status FULL:Full Resuscitation MAR Reviewed: Yes Vital Signs & Weight: Vital Signs (12 hours) Temp Pulse Resp BP BP Pulse Ox 10/19/17 09:02 97.7 F 81 16 100/68 91 L 10/19/17 08:38 100/68 10/19/17 08:00 97.7 F 81 16 10/19/17 04:00 98 F 88 18 118/70 96 Weight Admit Weight 152 lb 8.006 oz Weight 152 lb I&O: 10/18/17 10/19/17 10/20/17 06:59 06:59 06:59 Intake Total 1125 2620 Output Total 650 Balance 1125 1970 Result Diagrams: 10/18/17 04:14 10/18/17 04:14 Additional Labs: Accuchecks 10/19/17 10/19/17 10/18/17 11:26 05:09 16:05 POC Glucose 86 74 82 Phys Exam - Physical Examination HEENT: PERRLA Respiratory: no wheezing, no rales, no rhonchi, clear to auscultation bilateral Cardiovascular: RRR, no significant murmur, no rub Gastrointestinal: soft, non-tender, positive bowel sounds Musculoskeletal: no edema Dx/Plan (1) Bacteremia due to Klebsiella pneumoniae Code(s): R78.81 - BACTEREMIA Status: Acute (2) Abscess, hepatic Code(s): K75.0 - ABSCESS OF LIVER Status: Acute (3) Hypertension Code(s): I10 - ESSENTIAL (PRIMARY) HYPERTENSION Status: Chronic (4) 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 Status: Suspected - Plan * Klebsiella Bacteremia- Continue Colistin * Urine culture is growing Klesiella as well. * Liver Abscess due to Enterococcus- patient is currently on Meropenem as well * Outpatient arrangements for IV Meropenem and Colistin are in progress
[2017-10-19] MEDS: Vancomycin HCl 1 GM in Premix Bag 1 BAG IVPB SCH (17:35)
[2017-10-20] MEDS: Meropenem 1 GM, Admixture Fee 1 EACH in Sodium Chloride 0.9% 100 ML IVPB SCH ×4 (00:04→22:41)
[2017-10-20] MEDS: Sodium Chloride 0.9% 1,000 ML IV SCH (03:35)
[2017-10-20] MEDS: Docusate 100 MG CAP PO SCH ×2 (08:15→21:18)
[2017-10-20] MEDS: Potassium Chloride 20 MEQ TAB PO SCH (08:15)
[2017-10-20] MEDS: Lactinex Tablet PO SCH ×2 (08:15→21:18)
[2017-10-20] MEDS: Saccharomyces boulardii 250 MG CAP PO SCH (08:16)
[2017-10-20] MEDS: Carvedilol 6.25 MG TAB PO SCH ×2 (08:17→17:53)
[2017-10-20] MEDS: Folic Acid 1 MG TAB PO SCH ×2 (08:17→21:18)
[2017-10-20] MEDS: Famotidine 20 MG TAB PO SCH (08:17)
[2017-10-20] MEDS: Heparin 5,000 UNITS/ML VIAL SC SCH ×2 (08:18→21:18)
[2017-10-20] MEDS: Multivit, Therapeutic 1 TAB PO SCH (08:18)
[2017-10-20] MEDS: COLISTIMETHATE IVPB SCH ×2 (10:12→22:41)
[2017-10-20] MEDS: SODIUM CHLORIDE 0.9% IVPB SCH ×2 (10:12→22:41)
--- NOTE | 2017-10-20 13:08 | PDOC.PN ---
- Subjective Encounter Start Date: 10/20/17 Encounter Start Time: 09:40 -: old records requested/rev Patient seen and examined. No new complaints. No overnight events - Objective Resuscitation Status: Resuscitation Status FULL:Full Resuscitation MAR Reviewed: Yes Vital Signs & Weight: Vital Signs (12 hours) Temp Pulse Resp BP BP Pulse Ox 10/20/17 08:17 95/59 L 10/20/17 08:00 97.7 F 77 18 95/59 L 93 L Weight Admit Weight 152 lb 8.006 oz Weight 152 lb I&O: 10/19/17 10/20/17 10/21/17 06:59 06:59 06:59 Intake Total 2620 1000 Output Total 650 1050 Balance 1969 - Result Diagrams: 10/18/17 04:14 10/18/17 04:14 Additional Labs: Accuchecks 10/20/17 10/20/17 10/19/17 11:02 04:41 19:41 POC Glucose 78 77 110 10/19/17 16:51 POC Glucose 110 Phys Exam - Physical Examination Constitutional: NAD HEENT: PERRLA, moist MMs icterus+ Neck: no JVD, supple Respiratory: no wheezing, no rales, no rhonchi Cardiovascular: RRR, no significant murmur, no rub Gastrointestinal: soft, non-tender, no distention, positive bowel sounds Musculoskeletal: no edema, pulses present Neurological: non-focal, normal sensation, moves all 4 limbs Psychiatric: normal affect, A&O x 3 Skin: no rash, normal turgor Dx/Plan (1) Abnormal LFTs Code(s): R79.89 - OTHER SPECIFIED ABNORMAL FINDINGS OF BLOOD CHEMISTRY Status : Acute (2) Abscess, hepatic Code(s): K75.0 - ABSCESS OF LIVER Status: Acute (3) Bacteremia due to Klebsiella pneumoniae Code(s): R78.81 - BACTEREMIA Status: Acute (4) Folate deficiency Code(s): E53.8 - DEFICIENCY OF OTHER SPECIFIED B GROUP VITAMINS Status: Acute (5) UTI (urinary tract infection) Status: Acute (6) Anemia, macrocytic Code(s): D53.9 - NUTRITIONAL ANEMIA, UNSPECIFIED Status: Chronic (7) 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 Status: Chronic (8) Dyslipidemia Code(s): E78.5 - HYPERLIPIDEMIA, UNSPECIFIED Status: Chronic (9) Hypertension Code(s): I10 - ESSENTIAL (PRIMARY) HYPERTENSION Status: Chronic (10) Hypomagnesemia Code(s): E83.42 - HYPOMAGNESEMIA Status: Resolved - Plan cont current plan of care, continue antibiotics, health care social worker * medication reviewed as below * symptomatic treatment * will need 1 more week iv antibiotics on discharge * monitor 3 times labs per week * await placement. Review of Systems - Review of Systems ENT: negative: Ear Pain, Ear Discharge, Nose Pain, Nose Discharge, Nose Congestion, Mouth Pain, Mouth Swelling, Throat Pain, Throat Swelling, Other Respiratory: negative: Cough, Dry, Shortness of Breath, Hemoptysis, SOB with Excertion, Pleuritic Pain, Sputum, Wheezing Cardiovascular: negative: Chest Pain, Palpitations, Orthopnea, Paroxysmal Noc. Dyspnea, Edema, Light Headedness, Other Gastrointestinal: negative: Nausea, Vomiting, Abdominal Pain, Diarrhea, Constipation, Melena, Hematochezia, Other Genitourinary: negative: Dysuria, Frequency, Incontinence, Hematuria, Retention , Other Musculoskeletal: negative: Neck Pain, Shoulder Pain, Arm Pain, Back Pain, Hand Pain, Leg Pain, Foot Pain, Other Skin: negative: Rash, Lesions, Leif, Bruising, Other - Medications/Allergies Allergies/Adverse Reactions: Allergies Allergy/AdvReac Type Severity Reaction Status Date / Time No Known Allergies Allergy Verified 08/14/17 17:19 Medications: Current Medications Acetaminophen (Tylenol) 325 mg PO Q6H PRN PRN Reason: Headache/Fever or Pain Acidophilus (Floranex) 1 tab PO BID [facility] Last Admin: 10/20/17 08:15 Dose: 1 tab Carvedilol (Coreg) 6.25 mg PO BID-WM [facility] Last Admin: 10/20/17 08:17 Dose: Not Given Docusate Sodium (Colace) 100 mg PO BID [facility] Last Admin: 10/20/17 08:15 Dose: Not Given Famotidine (Pepcid) 20 mg PO QAM [facility] Last Admin: 10/20/17 08:17 Dose: 20 mg Folic Acid (Folvite) 1 mg PO BID [facility] Last Admin: 10/20/17 08:17 Dose: 1 mg Guaifenesin (Robitussin Sf) 200 mg PO Q4H PRN PRN Reason: Cough Heparin Sodium (Porcine) (Heparin) 5,000 units SC BID [facility] Last Admin: 10/20/17 08:18 Dose: 5,000 units Meropenem 1 gm/ Miscellaneous Medication 1 each/ Sodium Chloride 100 mls @ 200 mls/hr IVPB 0800,1600,2359 [facility] Last Admin: 10/20/17 08:18 Dose: 100 mls Vancomycin HCl 1 gm/ Device 200 mls @ 200 mls/hr IVPB 1700 [facility] Last Admin: 10/19/17 17:35 Dose: 200 mls Sodium Chloride (Normal Saline 0.9%) 1,000 mls @ 50 mls/hr IV .Q20H [facility] Last Admin: 10/20/17 03:35 Dose: 1,000 mls Colistimethate Sodium 112 mg/ (Sodium Chloride) 50 mls @ 100 mls/hr IVPB 1000, 2200 [facility] Last Admin: 10/20/17 10:12 Dose: 50 mls Mineral Oil/White Petrolatum (Eucerin Cream) 0 gm TOP BIDPRN PRN PRN Reason: Dry Skin Miscellaneous Medication (Pharmacy To Dose) 1 each IVPB PRN PRN PRN Reason: Pharmacy to dose Multivitamins (Theragran) 1 tab PO DAILY [facility] Last Admin: 10/20/17 08:18 Dose: 1 tab Ondansetron HCl (Zofran Odt) 4 mg PO Q6H PRN PRN Reason: Nausea/Vomiting Ondansetron HCl (Zofran) 4 mg IVP Q6H PRN PRN Reason: Nausea/Vomiting Polyethylene Glycol (Miralax) 17 gm PO DAILY PRN PRN Reason: Constipation Potassium Chloride (K-Dur) 20 meq PO QAM-WM [facility] Last Admin: 10/20/17 08:15 Dose: 20 meq Saccharomyces Boulardii (Florastor) 250 mg PO DAILY [facility] Last Admin: 10/20/17 08:16 Dose: 250 mg Senna (Senokot) 2 tab PO HSPRN PRN PRN Reason: Constipation Sodium Chloride (Flush - Normal Saline) 10 ml IVF Q12HR [facility] Last Admin: 10/20/17 08:19 Dose: Not Given Sodium Chloride (Flush - Normal Saline) 10 ml IVF PRN PRN PRN Reason: Saline Flush
--- NOTE | 2017-10-20 16:21 | PQF ---
CLINICAL DOCUMENTATION IMPROVEMENT CLARIFICATION FORM: ICD-10 Updated PLEASE DO AN ADDENDUM TO THE PROGRESS NOTE WITH ANY DOCUMENTATION UPDATES OR ADDITIONS AND CARRY THROUGH TO DC SUMMARY. THANK YOU. DATE: 10/20/17 ATTN: Dr. Freedman Please exercise your independent, professional judgment in responding to the clarification form. Clinical indicators are provided on the bottom of this form for your review Please check appropriate box(s): [x ] UTI please specify if due to or related to (as applicable): [x ] Indwelling Alcantar catheter [ ] Unable to determine etiology [ ] Other diagnosis [ ] Unable to determine For continuity of documentation, please document condition throughout progress notes and discharge summary. Thank You. CLINICAL INDICATORS - SIGNS / SYMPTOMS / LABS PN 10/17: ESCHERICHIA COLI UTI URINARY RETENTION W/ INDWELLING ALCANTAR CATHETER THAT WAS CHANGED LAST WEEK. ID PN 10/19: URINE CULTURE W/ KLEBSIELLA PNEUMONIAE, PENDING SUSCEPTIBILITIES PN 10/20: UTI. ACUTE. RISKS: H&P: KLEBSIELLA PNEUMONIA BACTEREMIA SUSPECTED SOURCE APPEARS TO BE INTRAABDOMINAL. ESCHERICHIA COLI UTI; CHOLANGIOCARCINOMA W/ LIVER ABSCESS W/ INDWELLING INTRAABDOMINAL DRAIN. URINARY RETENTION W/ INDWELLING ALCANTAR CATHETER THAT WAS CHANGED LAST WEEK. TREATMENT: CPOE 10/16: MEROPENEM 1 GM IV 0800, 1600, 2359 CPOE 10/16: VANCOMYCIN 1GM IV 1700 Thank you, No (This form is maintained as a part of the permanent medical record) 2015 [employer]. All Rights Reserved No Milton RN, BSN [email or web address] Office: [phone] [facility]
[2017-10-20 16:58] LABS: Vancomycin, Trough 29.1 ug/mL
[2017-10-20] MEDS: Vancomycin HCl 1 GM in Premix Bag 1 BAG IVPB SCH (17:54)
--- NOTE | 2017-10-20 20:16 | PDOC.EVN ---
Event Note - Event Note Event Note: Nursing called for tachycardia .EKG shows a-fib. chart reviewed. no h/o same. Pt hemodynamically stable but c/o some SOB. BP running at lower side of normal. Will transfer to tele for now. Cont Coreg if BP tolerates. HR currently controlled in 90s.Will give Digoxin if HR higher than 110.Will continue to monitor. Will get cardiology consultation in am and 2D ECHO. Defer anticoagulation to primary team and cardiology.Unclear if she will be a candidate for senior living anticoagulation or not. Pt on BUD Heparin for DVT prophylaxis.
[2017-10-21] MEDS: Sodium Chloride 0.9% 1,000 ML IV SCH (03:05)
[2017-10-21] MEDS: Meropenem 1 GM, Admixture Fee 1 EACH in Sodium Chloride 0.9% 100 ML IVPB SCH ×3 (08:36→23:32)
[2017-10-21] MEDS: Lactinex Tablet PO SCH ×2 (08:38→21:29)
[2017-10-21] MEDS: Saccharomyces boulardii 250 MG CAP PO SCH (08:38)
[2017-10-21] MEDS: Folic Acid 1 MG TAB PO SCH ×2 (08:38→21:29)
[2017-10-21] MEDS: Heparin 5,000 UNITS/ML VIAL SC SCH ×2 (08:38→21:30)
[2017-10-21] MEDS: Potassium Chloride 20 MEQ TAB PO SCH (08:39)
[2017-10-21] MEDS: Multivit, Therapeutic 1 TAB PO SCH (08:39)
[2017-10-21] MEDS: Famotidine 20 MG TAB PO SCH (08:39)
[2017-10-21] MEDS: Carvedilol 6.25 MG TAB PO SCH ×2 (08:39→17:06)
[2017-10-21] MEDS: Docusate 100 MG CAP PO SCH ×2 (08:39→21:29)
[2017-10-21] MEDS: SODIUM CHLORIDE 0.9% IVPB SCH ×2 (09:04→21:29)
[2017-10-21] MEDS: COLISTIMETHATE IVPB SCH ×2 (09:04→21:29)
--- NOTE | 2017-10-21 11:57 | PDOC.PN ---
- Subjective Encounter Start Date: 10/21/17 Encounter Start Time: 07:40 pt was transferred to [facility] for afib but pt is asymptomatic Patient seen and examined. No new complaints. No overnight events - Objective Resuscitation Status: Resuscitation Status FULL:Full Resuscitation MAR Reviewed: Yes Vital Signs & Weight: Vital Signs (12 hours) Temp Pulse Resp BP BP Pulse Ox 10/21/17 08:39 118/68 10/21/17 08:00 98 F 100 16 109/58 L 93 L 10/21/17 03:05 97.7 F 107 H 20 141/77 H Weight Admit Weight 152 lb 8.006 oz Weight 158 lb 15.253 oz I&O: 10/20/17 10/21/17 10/22/17 06:59 06:59 06:59 Intake Total 1000 1590 Output Total 1050 1400 Balance -50 190 Result Diagrams: 10/18/17 04:14 10/18/17 04:14 Additional Labs: Accuchecks 10/21/17 10/20/17 10/20/17 06:07 23:40 19:32 POC Glucose 73 93 59 L* 10/20/17 10/20/17 16:52 11:02 POC Glucose 78 78 EKG Reviewed by me: Yes (afib) Phys Exam - Physical Examination Constitutional: NAD HEENT: PERRLA, moist MMs, sclera anicteric Neck: no JVD, supple Respiratory: no wheezing, no rales, no rhonchi Cardiovascular: no significant murmur, irregular Gastrointestinal: soft, non-tender, no distention, positive bowel sounds drain+ Musculoskeletal: no edema, pulses present Neurological: non-focal, normal sensation, moves all 4 limbs Psychiatric: normal affect, A&O x 3 Skin: no rash, normal turgor Dx/Plan (1) Atrial fibrillation Code(s): I48.91 - UNSPECIFIED ATRIAL FIBRILLATION Status: Acute Qualifiers: Atrial fibrillation type: paroxysmal Qualified Code(s): I48.0 - Paroxysmal atrial fibrillation (2) Abnormal LFTs Code(s): R79.89 - OTHER SPECIFIED ABNORMAL FINDINGS OF BLOOD CHEMISTRY Status : Acute (3) Abscess, hepatic Code(s): K75.0 - ABSCESS OF LIVER Status: Acute (4) Bacteremia due to Klebsiella pneumoniae Code(s): R78.81 - BACTEREMIA Status: Acute (5) Folate deficiency Code(s): E53.8 - DEFICIENCY OF OTHER SPECIFIED B GROUP VITAMINS Status: Acute (6) UTI (urinary tract infection) Status: Acute (7) Anemia, macrocytic Code(s): D53.9 - NUTRITIONAL ANEMIA, UNSPECIFIED Status: Chronic (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 (9) Dyslipidemia Code(s): E78.5 - HYPERLIPIDEMIA, UNSPECIFIED Status: Chronic (10) Hypertension Code(s): I10 - ESSENTIAL (PRIMARY) HYPERTENSION Status: Chronic (11) Hypomagnesemia Code(s): E83.42 - HYPOMAGNESEMIA Status: Resolved - Plan cont current plan of care, plan discussed w/ family, continue antibiotics, psychosocial rehabilitation counselor * cardiology consulted * echo pending * rate controlled * not a good candidate for chronic anticoagulation * will add aspirin * will add metoprolol for rate control * medication reviewed as below * symptomatic treatment * needs iv antibiotic arrangement at [facility]. * continue cholistimin, meropenam Review of Systems - Review of Systems ENT: negative: Ear Pain, Ear Discharge, Nose Pain, Nose Discharge, Nose Congestion, Mouth Pain, Mouth Swelling, Throat Pain, Throat Swelling, Other Respiratory: negative: Cough, Dry, Shortness of Breath, Hemoptysis, SOB with Excertion, Pleuritic Pain, Sputum, Wheezing Cardiovascular: negative: Chest Pain, Palpitations, Orthopnea, Paroxysmal Noc. Dyspnea, Edema, Light Headedness, Other Gastrointestinal: negative: Nausea, Vomiting, Abdominal Pain, Diarrhea, Constipation, Melena, Hematochezia, Other Genitourinary: negative: Dysuria, Frequency, Incontinence, Hematuria, Retention , Other Musculoskeletal: negative: Neck Pain, Shoulder Pain, Arm Pain, Back Pain, Hand Pain, Leg Pain, Foot Pain, Other Skin: negative: Rash, Lesions, Leif, Bruising, Other - Medications/Allergies Allergies/Adverse Reactions: Allergies Allergy/AdvReac Type Severity Reaction Status Date / Time No Known Allergies Allergy Verified 08/14/17 17:19 Medications: Current Medications Acetaminophen (Tylenol) 325 mg PO Q6H PRN PRN Reason: Headache/Fever or Pain Acidophilus (Floranex) 1 tab PO BID [facility] Last Admin: 10/21/17 08:38 Dose: 1 tab Carvedilol (Coreg) 6.25 mg PO BID[facility] Last Admin: 10/21/17 08:39 Dose: 6.25 mg Docusate Sodium (Colace) 100 mg PO BID [facility] Last Admin: 10/21/17 08:39 Dose: Not Given Famotidine (Pepcid) 20 mg PO QAM [facility] Last Admin: 10/21/17 08:39 Dose: 20 mg Folic Acid (Folvite) 1 mg PO BID [facility] Last Admin: 10/21/17 08:38 Dose: 1 mg Guaifenesin (Robitussin Sf) 200 mg PO Q4H PRN PRN Reason: Cough Heparin Sodium (Porcine) (Heparin) 5,000 units SC BID [facility] Last Admin: 10/21/17 08:38 Dose: 5,000 units Meropenem 1 gm/ Miscellaneous Medication 1 each/ Sodium Chloride 100 mls @ 200 mls/hr IVPB 0800,1600,2359 [facility] Last Admin: 10/21/17 08:36 Dose: 100 mls Sodium Chloride (Normal Saline 0.9%) 1,000 mls @ 50 mls/hr IV .Q20H [facility] Last Admin: 10/21/17 03:05 Dose: 1,000 mls Colistimethate Sodium 112 mg/ (Sodium Chloride) 50 mls @ 100 mls/hr IVPB 1000, 2200 [facility] Last Admin: 10/21/17 09:04 Dose: 50 mls Vancomycin HCl 750 mg/ Sodium (Chloride) 250 mls @ 250 mls/hr IVPB 1700 [facility] Influenza Virus Vaccine (Fluzone High-Dose 2016- Syr) 0.5 ml IM .ONCE ONE Stop: 10/21/17 12:01 Last Admin: 10/21/17 11:52 Dose: 0.5 ml Mineral Oil/White Petrolatum (Eucerin Cream) 0 gm TOP BIDPRN PRN PRN Reason: Dry Skin Miscellaneous Medication (Pharmacy To Dose) 1 each IVPB PRN PRN PRN Reason: Pharmacy to dose Multivitamins (Theragran) 1 tab PO DAILY [facility] Last Admin: 10/21/17 08:39 Dose: 1 tab Ondansetron HCl (Zofran Odt) 4 mg PO Q6H PRN PRN Reason: Nausea/Vomiting Ondansetron HCl (Zofran) 4 mg IVP Q6H PRN PRN Reason: Nausea/Vomiting Polyethylene Glycol (Miralax) 17 gm PO DAILY PRN PRN Reason: Constipation Potassium Chloride (K-Dur) 20 meq PO QAM-WM [facility] Last Admin: 10/21/17 08:39 Dose: 20 meq Saccharomyces Boulardii (Florastor) 250 mg PO DAILY [facility] Last Admin: 10/21/17 08:38 Dose: 250 mg Senna (Senokot) 2 tab PO HSPRN PRN PRN Reason: Constipation Sodium Chloride (Flush - Normal Saline) 10 ml IVF Q12HR [facility] Last Admin: 10/21/17 08:39 Dose: Not Given Sodium Chloride (Flush - Normal Saline) 10 ml IVF PRN PRN PRN Reason: Saline Flush
[2017-10-21] MEDS ORDERED: FLU VACC TS2017-18 (>65YR) 0.5 ML SYRINGE IM ONE (12:00)
[2017-10-21 14:15] LABS: Anion Gap 9 mmol/L (10-20); BUN (Urea Nitrogen) 18 mg/dL (9.8-20.1); Calc. Creatinine Clearance 31 mL/min (70-130); Calcium 7.6 mg/dL (7.8-10.44); Carbon Dioxide 26 mmol/L (23-31); Chloride 102 mmol/L (98-107); Estimated GFR-MDRD 32
[2017-10-21 14:37] VITALS: BMI 27.1
--- NOTE | 2017-10-21 16:08 | CON ---
DATE OF CONSULTATION: 10/21/2017 REASON FOR CONSULTATION: Atrial fibrillation. PRIMARY FIBER HEEL PIECE SHAPER: None. HISTORY OF PRESENT ILLNESS: Ms. Goldman is a pleasant 86-year-old woman, who recently presented wit h sepsis. She has been in a senior care and recently found to have positive blood cultures. 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 She has no pre vious history of underlying atrial fibrillation. Her primary environmental air specialist is Dr. Rodriguez, but has only been managing her hypertension. She has no previous history of underlying coronary artery disea se. PAST MEDICAL HISTORY: As above including enterococcus infection, previous TIA, biliary stent placeme nt, PICC line. ALLERGIES: None. HOME MEDICATIONS: Carvedilol, Floranex, losartan, Zofran. SOCIAL HISTORY: No current tobacco or alcohol use. FAMILY HISTORY: Negative for CAD. REVIEW OF SYSTEMS: Ten-point review of systems is reviewed and as above, otherwise negative. PHYSICAL EXAMINATION: GENERAL: Patient is a pleasant female who is in no acute distress. The patient appears her stated a ge. VITAL SIGNS: Blood pressure 101/58, pulse 81, temperature 98.2. NEUROLOGIC: The patient is alert and oriented times 3 with no focal neurologic deficits. HEENT: Sclerae without icterus. Mouth has moist mucous membranes with normal pallor. NECK: No JVD. Carotid upstroke brisk. No bruits bilaterally. LUNGS: Clear to auscultation with unlabored respirations. BACK: No scoliosis or kyphosis. CARDIAC: Irregularly irregular. No significant rubs, murmurs, thrills, or gallops noted throughout the precordium. PMI is not displa anamika. There is no parasternal heave. ABDOMEN: Soft, nontender, nondistended. No peritoneal signs present. No hepatosplenomegaly. No ab normal striae. EXTREMITIES: 2+ femoral and 2+ dorsalis pedis pulses. No cyanosis, clubbing, or edema. SKIN: No gross abnormalities. PERTINENT LABORATORY DATA: Hemoglobin 8.8, creatinine 1.53. IMPRESSION: 1. Atrial fibrillation. 2. Sepsis. 3. Liver abscess. 4. Biliary cancer. RECOMMENDATIONS: The patient's heart rate appears to be controlled on current medical therapy. She is currently on carvedilol 6.25 mg p.o. b.i.d. She has also been on Plavix in the past for her TIA. We would consider novel oral anticoagulation therapy. We will discuss with her primary gastroentero logist. She is currently on heparin subcu. Continue antibiotic therapy.
[2017-10-21] MEDS: Vancomycin HCl 750 MG in Sodium Chloride 0.9% 250 ML 250 ML IVPB SCH (17:06)
[2017-10-21] MEDS ORDERED: Clopidogrel Bisulfate 75 MG TAB ONE (23:19)
[2017-10-22 07:47] LABS: #Basophils 0.1 thou/uL (0.0-0.2); #Eosinphils 0.3 thou/uL (0.0-0.7); #Lymphocytes 3.1 thou/uL (1.20-3.40); #Monocytes 0.6 thou/uL (0.11-0.59); #Neutrophils 3.3 thou/uL (1.40-6.50); %Basophils 0.9 % (0.0-1.0); %Eosinophils 3.8 % (0.0-10.0); %Monocytes 8.2 % (0.0-10.0); Hematocrit 25.8 % (36.0-47.0); Mean Platelet Volume 6.8 fL (7.4-10.4); Red Blood Cell (RBC) Count 2.55 mill/uL (4.20-5.40); White Blood Cell (WBC) Count 7.3 thou/uL (4.8-10.8)
[2017-10-22 08:05] LABS: ALT (SGPT) 40 U/L (8-55); AST (SGOT) 111 U/L (5-34); Alkaline Phosphatase 749 U/L (40-150); Anion Gap 12 mmol/L (10-20); BUN (Urea Nitrogen) 19 mg/dL (9.8-20.1); Calc. Creatinine Clearance 30 mL/min (70-130); Calcium 7.9 mg/dL (7.8-10.44); Carbon Dioxide 25 mmol/L (23-31); Chloride 103 mmol/L (98-107); Estimated GFR-MDRD 30; Globulin 2.8 g/dL (2.4-3.5); Protein, Total 4.6 g/dL (6.0-8.3)
[2017-10-22] MEDS: Meropenem 1 GM, Admixture Fee 1 EACH in Sodium Chloride 0.9% 100 ML IVPB SCH ×3 (08:56→23:25)
[2017-10-22] MEDS: Saccharomyces boulardii 250 MG CAP PO SCH (08:56)
[2017-10-22] MEDS: Potassium Chloride 20 MEQ TAB PO SCH (08:57)
[2017-10-22] MEDS: Multivit, Therapeutic 1 TAB PO SCH (08:57)
[2017-10-22] MEDS: Famotidine 20 MG TAB PO SCH (08:57)
[2017-10-22] MEDS: Docusate 100 MG CAP PO SCH ×2 (08:57→22:24)
[2017-10-22] MEDS: Carvedilol 6.25 MG TAB PO SCH ×2 (08:57→17:19)
[2017-10-22] MEDS: Lactinex Tablet PO SCH ×2 (08:57→22:24)
[2017-10-22] MEDS: Folic Acid 1 MG TAB PO SCH ×2 (08:58→22:24)
[2017-10-22] MEDS: Heparin 5,000 UNITS/ML VIAL SC SCH ×2 (08:58→22:24)
[2017-10-22] MEDS: COLISTIMETHATE IVPB SCH ×2 (10:25→22:37)
[2017-10-22] MEDS: SODIUM CHLORIDE 0.9% IVPB SCH ×2 (10:25→22:37)
--- NOTE | 2017-10-22 11:02 | PDOC.PN ---
- Subjective Encounter Start Date: 10/22/17 Encounter Start Time: 07:30 Patient seen and examined. No new complaints. No overnight events - Objective Resuscitation Status: Resuscitation Status FULL:Full Resuscitation MAR Reviewed: Yes Vital Signs & Weight: Vital Signs (12 hours) Temp Pulse Resp BP BP Pulse Ox 10/22/17 08:57 102/53 L 10/22/17 08:00 98.7 F 111 H 21 H 102/53 L 94 L 10/22/17 04:00 98.7 F 88 20 112/63 97 10/21/17 23:51 97.6 F 74 20 98/57 L 94 L Weight Admit Weight 152 lb 8.006 oz Weight 164 lb 14.492 oz I&O: 10/21/17 10/22/17 10/23/17 06:59 06:59 06:59 Intake Total 1590 1210 Output Total 1400 900 Balance 190 310 Result Diagrams: 10/22/17 07:31 10/22/17 07:31 Additional Labs: Accuchecks 10/22/17 10/21/17 10/21/17 05:45 20:20 17:11 POC Glucose 98 108 101 10/21/17 12:03 POC Glucose 69 L Phys Exam - Physical Examination Constitutional: NAD HEENT: PERRLA, moist MMs, sclera anicteric Neck: no JVD, supple Respiratory: no wheezing, no rales, no rhonchi Cardiovascular: no significant murmur, no rub, irregular Gastrointestinal: soft, non-tender, no distention, positive bowel sounds drain in place Musculoskeletal: no edema, pulses present Neurological: non-focal, normal sensation, moves all 4 limbs Psychiatric: normal affect, A&O x 3 Skin: no rash, normal turgor Dx/Plan (1) Atrial fibrillation Code(s): I48.91 - UNSPECIFIED ATRIAL FIBRILLATION Status: Acute Qualifiers: Atrial fibrillation type: paroxysmal Qualified Code(s): I48.0 - Paroxysmal atrial fibrillation (2) Abnormal LFTs Code(s): R79.89 - OTHER SPECIFIED ABNORMAL FINDINGS OF BLOOD CHEMISTRY Status : Acute (3) Abscess, hepatic Code(s): K75.0 - ABSCESS OF LIVER Status: Acute (4) Bacteremia due to Klebsiella pneumoniae Code(s): R78.81 - BACTEREMIA Status: Acute (5) Folate deficiency Code(s): E53.8 - DEFICIENCY OF OTHER SPECIFIED B GROUP VITAMINS Status: Acute (6) UTI (urinary tract infection) Status: Acute (7) Anemia, macrocytic Code(s): D53.9 - NUTRITIONAL ANEMIA, UNSPECIFIED Status: Chronic (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 Review of Systems - Review of Systems ENT: negative: Ear Pain, Ear Discharge, Nose Pain, Nose Discharge, Nose Congestion, Mouth Pain, Mouth Swelling, Throat Pain, Throat Swelling, Other Respiratory: negative: Cough, Dry, Shortness of Breath, Hemoptysis, SOB with Excertion, Pleuritic Pain, Sputum, Wheezing Cardiovascular: negative: Chest Pain, Palpitations, Orthopnea, Paroxysmal Noc. Dyspnea, Edema, Light Headedness, Other Gastrointestinal: negative: Nausea, Vomiting, Abdominal Pain, Diarrhea, Constipation, Melena, Hematochezia, Other Genitourinary: negative: Dysuria, Frequency, Incontinence, Hematuria, Retention , Other Musculoskeletal: negative: Neck Pain, Shoulder Pain, Arm Pain, Back Pain, Hand Pain, Leg Pain, Foot Pain, Other Skin: negative: Rash, Lesions, Leif, Bruising, Other - Medications/Allergies Allergies/Adverse Reactions: Allergies Allergy/AdvReac Type Severity Reaction Status Date / Time No Known Allergies Allergy Verified 08/14/17 17:19 Medications: Current Medications Acetaminophen (Tylenol) 325 mg PO Q6H PRN PRN Reason: Headache/Fever or Pain Acidophilus (Floranex) 1 tab PO BID [facility] Last Admin: 10/22/17 08:57 Dose: 1 tab Aspirin (Aspirin Chewable) 81 mg PO DAILY [facility] Last Admin: 10/22/17 08:57 Dose: 81 mg Carvedilol (Coreg) 6.25 mg PO BID-[facility] Last Admin: 10/22/17 08:57 Dose: 6.25 mg Docusate Sodium (Colace) 100 mg PO BID [facility] Last Admin: 10/22/17 08:57 Dose: 100 mg Famotidine (Pepcid) 20 mg PO QAM [facility] Last Admin: 10/22/17 08:57 Dose: 20 mg Folic Acid (Folvite) 1 mg PO BID [facility] Last Admin: 10/22/17 08:58 Dose: 1 mg Guaifenesin (Robitussin Sf) 200 mg PO Q4H PRN PRN Reason: Cough Heparin Sodium (Porcine) (Heparin) 5,000 units SC BID [facility] Last Admin: 10/22/17 08:58 Dose: 5,000 units Meropenem 1 gm/ Miscellaneous Medication 1 each/ Sodium Chloride 100 mls @ 200 mls/hr IVPB 0800,1600,2359 [facility] Last Admin: 10/22/17 08:56 Dose: 100 mls Colistimethate Sodium 112 mg/ (Sodium Chloride) 50 mls @ 100 mls/hr IVPB 1000, 2200 [facility] Last Admin: 10/22/17 10:25 Dose: 50 mls Vancomycin HCl 750 mg/ Sodium (Chloride) 250 mls @ 250 mls/hr IVPB 1700 [facility] Last Admin: 10/21/17 17:06 Dose: 250 mls Mineral Oil/White Petrolatum (Eucerin Cream) 0 gm TOP BIDPRN PRN PRN Reason: Dry Skin Miscellaneous Medication (Pharmacy To Dose) 1 each IVPB PRN PRN PRN Reason: Pharmacy to dose Multivitamins (Theragran) 1 tab PO DAILY [facility] Last Admin: 10/22/17 08:57 Dose: 1 tab Ondansetron HCl (Zofran Odt) 4 mg PO Q6H PRN PRN Reason: Nausea/Vomiting Ondansetron HCl (Zofran) 4 mg IVP Q6H PRN PRN Reason: Nausea/Vomiting Polyethylene Glycol (Miralax) 17 gm PO DAILY PRN PRN Reason: Constipation Potassium Chloride (K-Dur) 20 meq PO QAM-WM [facility] Last Admin: 10/22/17 08:57 Dose: 20 meq Saccharomyces Boulardii (Florastor) 250 mg PO DAILY [facility] Last Admin: 10/22/17 08:56 Dose: 250 mg Senna (Senokot) 2 tab PO HSPRN PRN PRN Reason: Constipation Sodium Chloride (Flush - Normal Saline) 10 ml IVF Q12HR [facility] Last Admin: 10/22/17 08:59 Dose: 10 ml Sodium Chloride (Flush - Normal Saline) 10 ml IVF PRN PRN PRN Reason: Saline Flush
[2017-10-22] MEDS ORDERED: Sodium Chloride 0.9% 250 ML IV SCH (12:30)
--- NOTE | 2017-10-22 13:58 | PRG ---
DATE OF SERVICE: 10/22/2017 SUBJECTIVE: Ms. Goldman today appears more listless than somnolent. She appears also to have shall ow breathing. Heart rate appears stable. OBJECTIVE: VITAL SIGNS: Blood pressure 87/48, pulse 89, temperature 98. LUNGS: Clear to auscultation. CARDIAC: Irregularly irregular. ABDOMEN: Soft, nontender, nondistended. EXTREMITIES: No edema. IMPRESSION: 1. Atrial fibrillation - rate control. 2. Cholangiocarcinoma. 3. Sepsis with liver abscess. RECOMMENDATIONS: I discussed the case with the daughter about what they have been told about her pro gnosis. Her prognosis does not appear to be good. The patient is not amenable to any treatment opti ons for cholangiocarcinoma. At this point, I discussed risks and benefits of anticoagulation therapy. She is at an increased ris k of bleeding due to the above. The patient and daughter had decided not to proceed with anticoagula tion therapy knowing there is a risk of stroke, but given her prognosis, it seems reasonable. At thi s point, we will continue Coreg. We will change aspirin to full dose aspirin. Otherwise, I have no further recommendations. Please reconsult if needed.
[2017-10-22] MEDS: Vancomycin HCl 750 MG in Sodium Chloride 0.9% 250 ML 250 ML IVPB SCH (17:13)
--- NOTE | 2017-10-22 18:17 | PDOC.EVN ---
Event Note - Event Note Event Note: Code Green called for changes in neurological status.Nursing report facial droop ,decreased awareness and flickering of eyes. Pt quickly responded to verbal stimuli. Seen and examined at bedside. Family in room Chart reviewed. BP 100/72,HR 70-100s.A fib on portable monitor. Awake ,alert ,oriented X3. Dry mucosa. CTA b/l .Irregular rythm. no focal neurological deficits. Will get Stat CT brain to r/o stroke w h/o a-fib and not on anticoagulation. CBC,CMP,Cardiac enzymes, Mag,phos ordered. will follow results. EKG shows a-fib. Code status discussed with patient who is awake and alert to make her own decisions and also with son and rest of family. Wishes to be a DNR/DNI.Orders entered in [employer].
[2017-10-22 18:22] LABS: #Eosinphils 0.2 thou/uL (0.0-0.7); #Lymphocytes 3.4 thou/uL (1.20-3.40); #Monocytes 0.6 thou/uL (0.11-0.59); #Neutrophils 3.2 thou/uL (1.40-6.50); %Basophils 0.3 % (0.0-1.0); %Eosinophils 3.1 % (0.0-10.0); %Lymphocytes 46.1 % (21.0-51.0); %Monocytes 8.3 % (0.0-10.0); Hematocrit 27.4 % (36.0-47.0); Mean Platelet Volume 7.1 fL (7.4-10.4); White Blood Cell (WBC) Count 7.5 thou/uL (4.8-10.8)
[2017-10-22 18:31] LABS: PTT 30.1 SEC (22.9-36.1); Prothrombin Time 14.9 SEC (12.0-14.7)
[2017-10-22 18:35] LABS: ALT (SGPT) 37 U/L (8-55); AST (SGOT) 111 U/L (5-34); Alkaline Phosphatase 793 U/L (40-150); Anion Gap 12 mmol/L (10-20); BUN (Urea Nitrogen) 19 mg/dL (9.8-20.1); Bilirubin, Total 2.1 mg/dL (0.2-1.2); Calc. Creatinine Clearance 27 mL/min (70-130); Calcium 7.8 mg/dL (7.8-10.44); Carbon Dioxide 23 mmol/L (23-31); Chloride 103 mmol/L (98-107); Estimated GFR-MDRD 27; Globulin 3.2 g/dL (2.4-3.5); Magnesium 1.1 mg/dL (1.6-2.6); Phosphorus 3.6 mg/dL (2.3-4.7); Protein, Total 4.9 g/dL (6.0-8.3)
[2017-10-22 18:38] LABS: Troponin I 0.295 ng/mL (< 0.028)
--- NOTE | 2017-10-22 19:26 | CT ---
CT HEAD NONCONTRAST: History: TIA. Altered mental status. FINDINGS: No comparison. There is no evidence of acute intracranial hemorrhage or infarct. The ventricles appea r normal in size, shape, and position. There is no mass effect or shift of midline structures. Visual ized paranasal sinuses remain well aerated. IMPRESSION: 1. No acute intracranial abnormalities are demonstrated on noncontrast CT head. Code CR. Findings called to Dr. Orantes at 1818 hours. POS: DONNA
[2017-10-22 20:51] LABS: Oxyhemoglobin 96.6 % (94.0-97.0); Sodium 135 mmol/L (135-148)
[2017-10-22] MEDS ORDERED: CCU Electrolyte Replacement 1 EACH FS ONE (20:51)
[2017-10-22 20:52] LABS: Mode NC; Modified Allen's Test POSITIVE; Vent NO
--- NOTE | 2017-10-22 20:56 | PDOC.EVN ---
Event Note - Event Note Event Note: code daria called again for decreased responsiveness. pt sarabjit dn examined. Hypotensive w SBP in 70s. HR in 70s. agonal breaths noted but good o2 sats. Fluid bolus started. ABG shows Ph 7.2,Co2 64. will transfer to CCU.start levophed. Start Biapap. code status remains DNR/DNI. will follow.
[2017-10-22] MEDS ORDERED: Norepinephrine 8 MG/0.9% NS 250 ML IVPB SCH (21:00)
[2017-10-22] MEDS ORDERED: Potassium Chloride 40 MEQ in Sodium Chloride 0.9% 250 ML 250 ML IVPB PRN (21:10)
[2017-10-22] MEDS ORDERED: Potassium Phosphate 9 MMOL in Sodium Chloride 0.9% 100 ML IVPB PRN (21:10)
[2017-10-22] MEDS ORDERED: Potassium Phosphate 12 MMOL in Sodium Chloride 0.9% 250 ML 250 ML IV PRN (21:10)
[2017-10-22] MEDS ORDERED: Potassium Chloride 40 MEQ in Premix Bag 1 BAG IVPB PRN (21:10)
[2017-10-22] MEDS ORDERED: Potassium Phosphate 15 MMOL in Sodium Chloride 0.9% 250 ML 250 ML IV PRN (21:10)
[2017-10-22] MEDS ORDERED: Magnesium Oxide 400 MG TAB PO PRN ×2 (21:10)
[2017-10-22] MEDS ORDERED: CCU ELECTROLYTE REPLACEMENT PROTOCOL FS PRN (21:10)
[2017-10-22] MEDS ORDERED: Potassium Chloride 20 MEQ TAB PO PRN (21:10)
[2017-10-22] MEDS ORDERED: Magnesium 2 GM/NS 0.9% 100 ML 2 GM in Premix Bag 1 BAG IVPB PRN (21:10)
[2017-10-22] MEDS: Sodium Chloride 0.9% 1,000 ML IV SCH (23:25)
[2017-10-22 23:56] LABS: #Eosinphils 0.2 thou/uL (0.0-0.7); #Lymphocytes 2.6 thou/uL (1.20-3.40); #Monocytes 0.6 thou/uL (0.11-0.59); #Neutrophils 2.7 thou/uL (1.40-6.50); %Basophils 0.1 % (0.0-1.0); %Eosinophils 2.9 % (0.0-10.0); %Lymphocytes 42.3 % (21.0-51.0); %Monocytes 9.6 % (0.0-10.0); Hematocrit 26.4 % (36.0-47.0); Mean Platelet Volume 6.9 fL (7.4-10.4); Red Blood Cell (RBC) Count 2.59 mill/uL (4.20-5.40)
[2017-10-23 05:26] LABS: #Eosinphils 0.2 thou/uL (0.0-0.7); #Lymphocytes 2.8 thou/uL (1.20-3.40); #Monocytes 0.5 thou/uL (0.11-0.59); #Neutrophils 3.3 thou/uL (1.40-6.50); %Basophils 0.3 % (0.0-1.0); %Eosinophils 3.1 % (0.0-10.0); %Lymphocytes 40.4 % (21.0-51.0); %Monocytes 7.6 % (0.0-10.0); Hematocrit 27.4 % (36.0-47.0); Mean Platelet Volume 7.3 fL (7.4-10.4); Red Blood Cell (RBC) Count 2.67 mill/uL (4.20-5.40); White Blood Cell (WBC) Count 6.9 thou/uL (4.8-10.8)
[2017-10-23 05:59] LABS: Anion Gap 10 mmol/L (10-20); BUN (Urea Nitrogen) 19 mg/dL (9.8-20.1); Calc. Creatinine Clearance 36 mL/min (70-130); Calcium 7.7 mg/dL (7.8-10.44); Carbon Dioxide 23 mmol/L (23-31); Chloride 104 mmol/L (98-107); Estimated GFR-MDRD 28; Magnesium 1.5 mg/dL (1.6-2.6)
[2017-10-23] MEDS: Aspirin 325 MG TAB PO SCH (08:41)
[2017-10-23] MEDS: Meropenem 1 GM, Admixture Fee 1 EACH in Sodium Chloride 0.9% 100 ML IVPB SCH (08:41)
[2017-10-23] MEDS: Potassium Chloride 20 MEQ TAB PO SCH (08:42)
[2017-10-23] MEDS: Multivit, Therapeutic 1 TAB PO SCH (08:42)
[2017-10-23] MEDS: Docusate 100 MG CAP PO SCH ×2 (08:42→20:30)
[2017-10-23] MEDS: Saccharomyces boulardii 250 MG CAP PO SCH (08:42)
[2017-10-23] MEDS: Famotidine 20 MG TAB PO SCH (08:43)
[2017-10-23] MEDS: Folic Acid 1 MG TAB PO SCH ×2 (08:43→20:30)
[2017-10-23] MEDS: Lactinex Tablet PO SCH ×2 (08:43→20:30)
[2017-10-23] MEDS: Carvedilol 6.25 MG TAB PO SCH (08:43)
--- NOTE | 2017-10-23 10:17 | CON ---
DATE OF CONSULTATION: 10/23/2017 REASON FOR CONSULTATION: Acute on chronic respiratory failure, lethargy, and hypotension. HISTORY OF PRESENT ILLNESS: The patient is an 86-year-old female who was admitted to the hospital on 10/16/2017 for positive blood cultures related to a liver abscess. She has what was suspected to be cholangiocarcinoma. She had a CT needle drain placed in the liver about 5 weeks ago. Cultures rece ntly grew out Klebsiella. She also had Escherichia coli urinary tract infection. Last night, she be came increasingly somnolent. She underwent a workup to rule out stroke, which is apparently negative . It was felt that her current symptoms were attributed to sepsis. She was moved to the ICU, she wa s placed on BiPAP and she was placed on Levophed. PAST MEDICAL HISTORY: 1. Hypertension. 2. Cholangiocarcinoma. 3. Liver abscess. 4. Urinary retention. 5. Enterococcus infection. 6. Transient ischemic attack. PAST SURGICAL HISTORY: 1. Biliary stent placement in July. 2. PICC line placement. 3. Abdominal drain. ALLERGIES: None. SOCIAL HISTORY: Lives at shelter. Does not smoke, does not drink, does not use illicit drug s. FAMILY MEDICAL HISTORY: Unremarkable. MEDICATIONS: Floranex, aspirin, Coreg, Colace, Pepcid, meropenem, and vancomycin. REVIEW OF SYSTEMS: Otherwise, negative. PHYSICAL EXAMINATION: VITAL SIGNS: Temperature 97.9, pulse 71, blood pressure 85/50. HEENT: Unremarkable. NECK: No JVD. LUNGS: Clear to auscultation. CARDIOVASCULAR: S1, S2 regular. ABDOMEN: She has a midline percutaneous drain in place with brown drainage fluid. Abdomen is obese, soft. EXTREMITIES: No clubbing, cyanosis, or edema. LABORATORY DATA: White blood cell count 6.9, hemoglobin 8.7, hematocrit 27.4, platelet count 159. P H 7.26, PCO2 61, PO2 72 on 28% nasal cannula last night. Sodium 134, potassium 3.4, chloride 104, CO 2 23, BUN 19, creatinine 1.7, glucose 75. ASSESSMENT: 1. Sepsis syndrome secondary to liver abscess and chronic urinary tract infections. 2. Acute respiratory failure, which has improved overnight. 3. Cholangiocarcinoma. PLAN: 1. The patient's BiPAP has been stopped. We will observe her and see how she does. She will contin ue the IV antibiotics. 2. We will continue Levophed as needed. 3. We would hold Coreg for the time being.
[2017-10-23] MEDS: Heparin 5,000 UNITS/ML VIAL SC SCH (10:26)
[2017-10-23] MEDS: SODIUM CHLORIDE 0.9% IVPB SCH (10:30)
[2017-10-23] MEDS: COLISTIMETHATE IVPB SCH (10:30)
[2017-10-23] MEDS: Sodium Chloride 0.9% 1,000 ML IV SCH ×2 (10:39→18:29)
--- NOTE | 2017-10-23 13:06 | PDOC.PN ---
- Subjective Encounter Start Date: 10/23/17 Encounter Start Time: 11:00 -: old records requested/rev last night pt was transfered to stroke floor, then transferred to CCU, hypotensive and now on levophed, on bipap this morning - Objective Resuscitation Status: Resuscitation Status DNR:Do Not Resuscitate MAR Reviewed: Yes Vital Signs & Weight: Vital Signs (12 hours) Temp Pulse Resp BP Pulse Ox 10/23/17 12:00 97.1 F L 10/23/17 08:43 88/54 L 10/23/17 08:00 97.9 F 64 18 98 10/23/17 06:50 76 98 10/23/17 03:00 97.8 F 10/23/17 02:14 73 Weight Admit Weight 152 lb 8.006 oz Weight 207 lb 10.807 oz Most Recent Monitor Data Heart Rate from ECG 86 NIBP 97/53 NIBP BP-Mean 71 Respiration from ECG 24 SpO2 98 I&O: 10/22/17 10/23/17 10/24/17 06:59 06:59 06:59 Intake Total 1210 957 200 Output Total 900 685 200 Balance 310 272 0 Result Diagrams: 10/23/17 04:02 10/23/17 04:02 Additional Labs: Accuchecks 10/23/17 10/23/17 10/22/17 12:15 05:20 23:25 POC Glucose 105 87 94 10/22/17 10/22/17 20:46 17:58 POC Glucose 94 104 EKG Reviewed by me: Yes (afib) Phys Exam - Physical Examination Constitutional: NAD HEENT: PERRLA, moist MMs, sclera anicteric Neck: no JVD, supple Respiratory: no wheezing, no rales, no rhonchi Cardiovascular: no significant murmur, irregular Gastrointestinal: soft, non-tender, no distention Musculoskeletal: pulses present, edema present Neurological: moves all 4 limbs Lymphatic: no nodes Psychiatric: normal affect Skin: no rash, normal turgor Dx/Plan (1) Atrial fibrillation Code(s): I48.91 - UNSPECIFIED ATRIAL FIBRILLATION Status: Acute Qualifiers: Atrial fibrillation type: paroxysmal Qualified Code(s): I48.0 - Paroxysmal atrial fibrillation (2) Abnormal LFTs Code(s): R79.89 - OTHER SPECIFIED ABNORMAL FINDINGS OF BLOOD CHEMISTRY Status : Acute (3) Abscess, hepatic Code(s): K75.0 - ABSCESS OF LIVER Status: Acute (4) Bacteremia due to Klebsiella pneumoniae Code(s): R78.81 - BACTEREMIA Status: Acute (5) Folate deficiency Code(s): E53.8 - DEFICIENCY OF OTHER SPECIFIED B GROUP VITAMINS Status: Acute (6) UTI (urinary tract infection) Status: Acute (7) Anemia, macrocytic Code(s): D53.9 - NUTRITIONAL ANEMIA, UNSPECIFIED Status: Chronic (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 (9) Dyslipidemia Code(s): E78.5 - HYPERLIPIDEMIA, UNSPECIFIED Status: Chronic (10) Hypertension Code(s): I10 - ESSENTIAL (PRIMARY) HYPERTENSION Status: Chronic (11) Hypomagnesemia Code(s): E83.42 - HYPOMAGNESEMIA Status: Acute - Plan cont current plan of care, plan discussed w/ family, roberto catheter, 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 Review of Systems - Review of Systems ENT: negative: Ear Pain, Ear Discharge, Nose Pain, Nose Discharge, Nose Congestion, Mouth Pain, Mouth Swelling, Throat Pain, Throat Swelling, Other Respiratory: negative: Cough, Dry, Shortness of Breath, Hemoptysis, SOB with Excertion, Pleuritic Pain, Sputum, Wheezing Cardiovascular: negative: Chest Pain, Palpitations, Orthopnea, Paroxysmal Noc. Dyspnea, Edema, Light Headedness, Other Gastrointestinal: negative: Nausea, Vomiting, Abdominal Pain, Diarrhea, Constipation, Melena, Hematochezia, Other Genitourinary: negative: Dysuria, Frequency, Incontinence, Hematuria, Retention , Other Musculoskeletal: negative: Neck Pain, Shoulder Pain, Arm Pain, Back Pain, Hand Pain, Leg Pain, Foot Pain, Other - Medications/Allergies Allergies/Adverse Reactions: Allergies Allergy/AdvReac Type Severity Reaction Status Date / Time No Known Allergies Allergy Verified 08/14/17 17:19 Medications: Current Medications Acetaminophen (Tylenol) 325 mg PO Q6H PRN PRN Reason: Headache/Fever or Pain Acidophilus (Floranex) 1 tab PO BID [facility] Last Admin: 10/23/17 08:43 Dose: 1 tab Aspirin (Aspirin) 325 mg PO DAILY [facility] Last Admin: 10/23/17 08:41 Dose: 325 mg Carvedilol (Coreg) 6.25 mg PO BID-WM [facility] Last Admin: 10/23/17 08:43 Dose: Not Given Docusate Sodium (Colace) 100 mg PO BID [facility] Last Admin: 10/23/17 08:42 Dose: 100 mg Famotidine (Pepcid) 20 mg PO QAM [facility] Last Admin: 10/23/17 08:43 Dose: 20 mg Folic Acid (Folvite) 1 mg PO BID [facility] Last Admin: 10/23/17 08:43 Dose: 1 mg Guaifenesin (Robitussin Sf) 200 mg PO Q4H PRN PRN Reason: Cough Heparin Sodium (Porcine) (Heparin) 5,000 units SC BID [facility] Last Admin: 10/23/17 10:26 Dose: Not Given Meropenem 1 gm/ Miscellaneous Medication 1 each/ Sodium Chloride 100 mls @ 200 mls/hr IVPB 0800,1600,2359 [facility] Last Admin: 10/23/17 08:41 Dose: 100 mls Colistimethate Sodium 112 mg/ (Sodium Chloride) 50 mls @ 100 mls/hr IVPB 1000, 2200 [facility] Last Admin: 10/23/17 10:30 Dose: 50 mls Vancomycin HCl 750 mg/ Sodium (Chloride) 250 mls @ 250 mls/hr IVPB 1700 [facility] Last Admin: 10/22/17 17:13 Dose: 250 mls Norepinephrine Bitartrate (Levophed) 250 mls @ 0 mls/hr IVPB INF [facility]; Titrate PRN Reason: Protocol Last Admin: 10/22/17 21:33 Dose: 250 mls Potassium Chloride 40 meq/ (Sodium Chloride) 270 mls @ 135 mls/hr IVPB ASDIR PRN PRN Reason: FOR SERUM K+ 2.5 - 3.5 Potassium Chloride 40 meq/ (Device) 100 mls @ 50 mls/hr IVPB ASDIR PRN PRN Reason: FOR SERUM K+ 2.5 - 3.5 Magnesium Sulfate 1 gm/ Sodium (Chloride) 102 mls @ 102 mls/hr IV PRN PRN PRN Reason: MAG LEVEL 1.4 - 2.0 Magnesium Sulfate 2 gm/ Device 100 mls @ 100 mls/hr IVPB ASDIR PRN PRN Reason: MAGNESIUM < 1.4 Last Admin: 10/23/17 00:25 Dose: 100 mls Potassium Phosphate 9 mmol/ (Sodium Chloride) 103 mls @ 25.75 mls/hr IVPB ASDIR PRN PRN Reason: Phosphate 1.0-1.8 Potassium Phosphate 12 mmol/ (Sodium Chloride) 254 mls @ 63.5 mls/hr IV ASDIR PRN PRN Reason: Serum phosphate 0.5-0.9 Potassium Phosphate 15 mmol/ (Sodium Chloride) 255 mls @ 63.75 mls/hr IV ASDIR PRN PRN Reason: Serum Phos < 0.5 Sodium Chloride (Normal Saline 0.9%) 1,000 mls @ 100 mls/hr IV .Q10H [facility] Last Admin: 10/23/17 10:39 Dose: 1,000 mls Magnesium Oxide (Magnesium Oxide) 400 mg PO BIDPRN PRN PRN Reason: FOR SERUM MAG 1.4 - 2.0 Last Admin: 10/23/17 06:12 Dose: 400 mg Magnesium Oxide (Magnesium Oxide) 800 mg PO PRN PRN PRN Reason: FOR SERUM MAG < 1.4 Mineral Oil/White Petrolatum (Eucerin Cream) 0 gm TOP BIDPRN PRN PRN Reason: Dry Skin Miscellaneous Medication (Pharmacy To Dose) 1 each IVPB PRN PRN PRN Reason: Pharmacy to dose Miscellaneous Medication (Phos-Nak) 1 pkt PO TIDPRN PRN PRN Reason: FOR PHOS LEVEL 1.0 - 1.8 Miscellaneous Medication (Phos-Nak) 2 pkt PO TIDPRN PRN PRN Reason: FOR PHOS LEVEL 0.5 - 1.0 Multivitamins (Theragran) 1 tab PO DAILY [facility] Last Admin: 10/23/17 08:42 Dose: 1 tab Ccu Electrolyte (Replacement Protocol) 0 each FS PRN PRN PRN Reason: FOR ELECTROLYTE REPLACEMENT Ondansetron HCl (Zofran Odt) 4 mg PO Q6H PRN PRN Reason: Nausea/Vomiting Ondansetron HCl (Zofran) 4 mg IVP Q6H PRN PRN Reason: Nausea/Vomiting Polyethylene Glycol (Miralax) 17 gm PO DAILY PRN PRN Reason: Constipation Potassium Chloride (K-Dur) 20 meq PO QAM-WM [facility] Last Admin: 10/23/17 08:42 Dose: 20 meq Potassium Chloride (K-Dur) 40 meq PO ASDIR PRN PRN Reason: FOR SERUM K+ 2.5 - 3.5 Potassium Chloride (Klor-Con) 40 meq PER TUBE ASDIR PRN PRN Reason: FOR SERUM K+ 2.5-3.5 Last Admin: 10/23/17 06:12 Dose: 40 meq Saccharomyces Boulardii (Florastor) 250 mg PO DAILY [facility] Last Admin: 10/23/17 08:42 Dose: 250 mg Senna (Senokot) 2 tab PO HSPRN PRN PRN Reason: Constipation Sodium Chloride (Flush - Normal Saline) 10 ml IVF Q12HR [facility] Last Admin: 10/23/17 08:45 Dose: 10 ml Sodium Chloride (Flush - Normal Saline) 10 ml IVF PRN PRN PRN Reason: Saline Flush
[2017-10-23 16:20] LABS: Vancomycin, Trough 30.2 ug/mL
--- NOTE | 2017-10-23 18:22 | PRG ---
DATE OF SERVICE: 10/23/2017 SUBJECTIVE: Ms. Goldman was transferred to the Intensive Care Unit yesterday because of change in n eurological status with facial droop. She underwent through a code green protocol and brain CT did n ot show any acute abnormalities. Right now, she is awake and alert, everything is back to baseline. She denies any headaches, no visual symptoms, moving all extremities, no respiratory symptoms except for a little bit of dry cough. No abdominal pain. OBJECTIVE: VITAL SIGNS: T-max was 97.9, blood pressure 99/49, pulse 71, respirations 20-26, O2 sat is currently 98% on 2 liters nasal cannula. SKIN: Not remarkable except for the left medial ankle area of ulceration with central eschar measuri ng about 1 cm. She has a peripheral IV access and a Rascon catheter. HEENT: Ocular movements are conjugate. Sclerae white. Oral cavity moist. LUNGS: With symmetric air entry. No crackles or wheezing. HEART: S1, S2, regular rate. ABDOMEN: Soft, not distended or tender. EXTREMITIES: Moves all extremities equally, well perfused. The I's and O's have been slightly positive for the past 3 days. Urinary output ranging from 600-140 0. LABORATORY DATA: Sodium 134, creatinine 1.75 which is higher than her baseline here. GFR of 28. Wh ite cell count 6.9. Repeat blood cultures from 10/19/2017, no growth. Urine culture with Klebsiella pneumoniae from 10/16/2017. The susceptibilities are the same ones noted from the 10/14/2017, blood cultures with highly resistant strain of Klebsiella pneumoniae. MEDICATIONS: Include colistin and meropenem. ASSESSMENT AND DISCUSSION: Cholangiocarcinoma with biliary obstruction, status post stenting and per cutaneous drainage; liver abscess versus necrotic malignancy and Klebsiella pneumoniae with a highly resistant phenotype likely carbapenemase producing Klebsiella secondary to urinary tract infection. This is associated with a Rascon catheterization. She has received thus far about 7 days of therapy a nd we will adjust dosage of colistin to account for the decrease in GFR as well as the meropenem. If there is further decrease in renal function, I would discontinue both antimicrobials in the next few days.
[2017-10-23] MEDS: Meropenem 500 MG, Admixture Fee 1 EACH in Sterile Water 10 ML SLOW IVP SCH (20:30)
[2017-10-23] MEDS ORDERED: Meropenem 0.5 GM in Sodium Chloride 0.9% 100 ML IVPB SCH (21:00)
[2017-10-24] MEDS: COLISTIMETHATE IVPB SCH (00:18)
[2017-10-24] MEDS: Sodium Chloride 0.9% 1,000 ML IV SCH ×3 (00:18→22:04)
[2017-10-24] MEDS: SODIUM CHLORIDE 0.9% IVPB SCH (00:18)
[2017-10-24] MEDS ORDERED: Temazepam 15 MG CAP PO PRN (06:52)
[2017-10-24] MEDS ORDERED: Artificial Tears 18 DROP/0.9 ML EA EYE PRN (06:52)
[2017-10-24] MEDS ORDERED: Mag-Al 1200 mg/1200 mg/30 ML UDCUP PO PRN (06:52)
[2017-10-24] MEDS ORDERED: Loratadine 10 MG TAB PO PRN (06:52)
[2017-10-24] MEDS ORDERED: Milk Of Magnesia 30 ML UDCUP PO PRN (06:52)
[2017-10-24] MEDS ORDERED: Sodium Chloride 0.65% Nasal 44 ML BOT EA NARE PRN (06:52)
[2017-10-24 07:20] LABS: #Basophils 0.1 thou/uL (0.0-0.2); #Eosinphils 0.3 thou/uL (0.0-0.7); #Lymphocytes 3.2 thou/uL (1.20-3.40); #Monocytes 0.6 thou/uL (0.11-0.59); #Neutrophils 3.8 thou/uL (1.40-6.50); %Basophils 1.2 % (0.0-1.0); %Eosinophils 3.9 % (0.0-10.0); %Lymphocytes 39.7 % (21.0-51.0); %Monocytes 7.8 % (0.0-10.0); Hematocrit 24.4 % (36.0-47.0); Mean Platelet Volume 6.7 fL (7.4-10.4); Red Blood Cell (RBC) Count 2.43 mill/uL (4.20-5.40); White Blood Cell (WBC) Count 8.1 thou/uL (4.8-10.8)
[2017-10-24 07:43] LABS: ALT (SGPT) 24 U/L (8-55); AST (SGOT) 91 U/L (5-34); Alkaline Phosphatase 698 U/L (40-150); Anion Gap 9 mmol/L (10-20); BUN (Urea Nitrogen) 21 mg/dL (9.8-20.1); Bilirubin, Total 1.7 mg/dL (0.2-1.2); Calc. Creatinine Clearance 27 mL/min (70-130); Calcium 7.5 mg/dL (7.8-10.44); Carbon Dioxide 25 mmol/L (23-31); Chloride 107 mmol/L (98-107); Estimated GFR-MDRD 25; Globulin 2.7 g/dL (2.4-3.5); Protein, Total 4.4 g/dL (6.0-8.3)
[2017-10-24] MEDS ORDERED: Sodium Chloride 0.9% 500 ML IV SCH (08:15)
[2017-10-24] MEDS: Aspirin 325 MG TAB PO SCH (08:48)
[2017-10-24] MEDS: Atorvastatin Calcium 20 MG TAB PO SCH (08:48)
[2017-10-24] MEDS: Famotidine 20 MG TAB PO SCH (08:48)
[2017-10-24] MEDS: Meropenem 500 MG, Admixture Fee 1 EACH in Sterile Water 10 ML SLOW IVP SCH ×2 (08:51→22:04)
--- NOTE | 2017-10-24 10:23 | PRG ---
DATE OF SERVICE: 10/24/2017 SUBJECTIVE: Ms. Goldman feels better today. She had no acute complaints except for some mouth sor eness. PHYSICAL EXAMINATION: VITAL SIGNS: Temperature is 100.0, temperature 95, blood pressure ranging systolic 80s-90s. She is off the Levophed drip, respiratory rate 17, O2 sat 100%. Total intake for 24 hours 32, output 900. Weight 175 pounds. HEENT: Unremarkable. NECK: No JVD. LUNGS: Clear anteriorly. CARDIOVASCULAR: S1, S2 regular. ABDOMEN: Soft. The drains tube is noted. EXTREMITIES: No clubbing, cyanosis, or edema. LABORATORY DATA: Sodium 137, potassium 3.6, chloride 107, CO2 25, BUN 21, creatinine 1.9, glucose 75 . White blood cell count 8.1, hemoglobin 8, hematocrit 24.4 and platelet count 159. ASSESSMENT: 1. Sepsis syndrome secondary to liver abscess. 2. Cholangiocarcinoma. 3. Status post acute respiratory failure. PLAN: 1. The patient can probably be moved to the floor. Continue IV fluids. She is DNR. 2. Continue IV antibiotics.
[2017-10-24] MEDS: Folic Acid 1 MG TAB PO SCH ×2 (10:50→21:27)
[2017-10-24] MEDS: Cyanocobalamin (Vitamin B-12) 1,000 MCG TAB PO SCH (10:50)
[2017-10-24] MEDS: Docusate 100 MG CAP PO SCH ×2 (10:50→21:27)
[2017-10-24] MEDS: Lactinex Tablet PO SCH ×2 (10:51→21:27)
[2017-10-24] MEDS: Multivit, Therapeutic 1 TAB PO SCH (10:51)
[2017-10-24] MEDS: Saccharomyces boulardii 250 MG CAP PO SCH (10:51)
--- NOTE | 2017-10-24 11:36 | PDOC.PN ---
- Subjective Encounter Start Date: 10/24/17 Encounter Start Time: 07:40 this morning pt is hypotensive, given bolus, she was wheezing, no fever, very weak - Objective Resuscitation Status: Resuscitation Status DNR:Do Not Resuscitate MAR Reviewed: Yes Vital Signs & Weight: Vital Signs (12 hours) Temp Pulse Resp Pulse Ox 10/24/17 10:09 100 10/24/17 08:00 97.9 F 66 22 H 10/24/17 04:00 100.0 F H 10/24/17 00:00 97.7 F Weight Admit Weight 152 lb 8.006 oz Weight 175 lb 4.28 oz Most Recent Monitor Data Heart Rate from ECG 64 NIBP 107/62 NIBP BP-Mean 70 Respiration from ECG 11 SpO2 100 I&O: 10/23/17 10/24/17 10/25/17 06:59 06:59 06:59 Intake Total 957 3232.7 50 Output Total 685 900 Balance 272 2332.7 50 Result Diagrams: 10/24/17 07:13 10/24/17 07:13 Additional Labs: Accuchecks 10/24/17 10/24/17 10/23/17 06:03 00:23 16:20 POC Glucose 66 L 75 85 10/23/17 12:15 POC Glucose 105 EKG Reviewed by me: Yes (afib) Phys Exam - Physical Examination Constitutional: NAD HEENT: PERRLA, moist MMs, sclera anicteric Neck: no JVD, supple Respiratory: no rales, wheezing present Cardiovascular: no significant murmur, irregular Gastrointestinal: soft, non-tender, no distention, positive bowel sounds drain+ Musculoskeletal: pulses present, edema present Neurological: non-focal, normal sensation Lymphatic: no nodes Psychiatric: normal affect Skin: no rash, normal turgor Dx/Plan (1) Hypotension Status: Acute (2) Acute kidney failure Status: Acute (3) Atrial fibrillation Code(s): I48.91 - UNSPECIFIED ATRIAL FIBRILLATION Status: Acute Qualifiers: Atrial fibrillation type: paroxysmal Qualified Code(s): I48.0 - Paroxysmal atrial fibrillation (4) Abnormal LFTs Code(s): R79.89 - OTHER SPECIFIED ABNORMAL FINDINGS OF BLOOD CHEMISTRY Status : Acute (5) Abscess, hepatic Code(s): K75.0 - ABSCESS OF LIVER Status: Acute (6) Bacteremia due to Klebsiella pneumoniae Code(s): R78.81 - BACTEREMIA Status: Acute (7) Folate deficiency Code(s): E53.8 - DEFICIENCY OF OTHER SPECIFIED B GROUP VITAMINS Status: Acute (8) UTI (urinary tract infection) Status: Acute (9) Anemia, macrocytic Code(s): D53.9 - NUTRITIONAL ANEMIA, UNSPECIFIED Status: Chronic (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 (11) Dyslipidemia Code(s): E78.5 - HYPERLIPIDEMIA, UNSPECIFIED Status: Chronic (12) Hypertension Code(s): I10 - ESSENTIAL (PRIMARY) HYPERTENSION Status: Chronic (13) Hypomagnesemia Code(s): E83.42 - HYPOMAGNESEMIA Status: Acute (14) Hypoalbuminemia due to protein-calorie malnutrition Code(s): E46 - UNSPECIFIED PROTEIN-CALORIE MALNUTRITION Status: Acute - Plan cont current plan of care, continue antibiotics * bolus fluid given for low BP * will add duoneb q 6 hourly * for rate control will use digoxin if needed * family upset with frequent transfer * will monitor in ccu, as still appears vitals are fluctuating * continue IVF * continue IV antibiotics as per renal dose * medication reviewed as below * symptomatic treatment * prognosis is poor. Review of Systems - Review of Systems Constitutional: Weakness, Malaise. negative: Fever, Chills, Sweats, Other Respiratory: negative: Cough, Dry, Shortness of Breath, Hemoptysis, SOB with Excertion, Pleuritic Pain, Sputum, Wheezing Cardiovascular: negative: Chest Pain, Palpitations, Orthopnea, Paroxysmal Noc. Dyspnea, Edema, Light Headedness, Other Gastrointestinal: negative: Nausea, Vomiting, Abdominal Pain, Diarrhea, Constipation, Melena, Hematochezia, Other Genitourinary: negative: Dysuria, Frequency, Incontinence, Hematuria, Retention , Other Musculoskeletal: negative: Neck Pain, Shoulder Pain, Arm Pain, Back Pain, Hand Pain, Leg Pain, Foot Pain, Other Skin: negative: Rash, Lesions, Leif, Bruising, Other - Medications/Allergies Allergies/Adverse Reactions: Allergies Allergy/AdvReac Type Severity Reaction Status Date / Time No Known Allergies Allergy Verified 08/14/17 17:19 Medications: Current Medications Acetaminophen (Tylenol) 325 mg PO Q6H PRN PRN Reason: Headache/Fever or Pain Acidophilus (Floranex) 1 tab PO BID [facility] Last Admin: 10/24/17 10:51 Dose: Not Given Al Hydroxide/Mg Hydroxide (Maalox) 15 ml PO Q4H PRN PRN Reason: Heartburn or Indigestion Albuterol/Ipratropium (Duoneb) 3 ml NEB [id number] [facility] Artificial Tears (Tears Naturale) 0 drop EA EYE PRN PRN PRN Reason: Dry Eyes Aspirin (Aspirin) 325 mg PO DAILY [facility] Last Admin: 10/24/17 08:48 Dose: 325 mg Atorvastatin Calcium (Lipitor) 20 mg PO DAILY [facility] Last Admin: 10/24/17 08:48 Dose: 20 mg Cholecalciferol (Vitamin D3) 1,000 units PO DAILY [facility] Last Admin: 10/24/17 10:50 Dose: Not Given Cyanocobalamin (Vitamin B-12) 1,000 mcg PO DAILY [facility] Last Admin: 10/24/17 10:50 Dose: Not Given Docusate Sodium (Colace) 100 mg PO BID [facility] Last Admin: 10/24/17 10:50 Dose: Not Given Famotidine (Pepcid) 20 mg PO QAM [facility] Last Admin: 10/24/17 08:48 Dose: 20 mg Folic Acid (Folvite) 1 mg PO BID [facility] Last Admin: 10/24/17 10:50 Dose: Not Given Guaifenesin (Robitussin Sf) 200 mg PO Q4H PRN PRN Reason: Cough Sodium Chloride (Normal Saline 0.9%) 1,000 mls @ 100 mls/hr IV .Q10H [facility] Last Admin: 10/24/17 00:18 Dose: 1,000 mls Meropenem 500 mg/Miscellaneous Medication 1 each/ Sterile Water 10 mls @ 120 mls/hr SLOW IVP Q12HR [facility] Last Admin: 10/24/17 08:51 Dose: 10 mls Loratadine (Claritin) 10 mg PO DAILYPRN PRN PRN Reason: Sinus Symptoms Magnesium Hydroxide (Milk Of Magnesium) 30 ml PO DAILYPRN PRN PRN Reason: Constipation Mineral Oil/White Petrolatum (Eucerin Cream) 0 gm TOP BIDPRN PRN PRN Reason: Dry Skin Multivitamins (Theragran) 1 tab PO DAILY [facility] Last Admin: 10/24/17 10:51 Dose: Not Given Ccu Electrolyte (Replacement Protocol) 0 each FS PRN PRN PRN Reason: FOR ELECTROLYTE REPLACEMENT Ondansetron HCl (Zofran Odt) 4 mg PO Q6H PRN PRN Reason: Nausea/Vomiting Ondansetron HCl (Zofran) 4 mg IVP Q6H PRN PRN Reason: Nausea/Vomiting Polyethylene Glycol (Miralax) 17 gm PO DAILY PRN PRN Reason: Constipation Saccharomyces Boulardii (Florastor) 250 mg PO DAILY [facility] Last Admin: 10/24/17 10:51 Dose: Not Given Senna (Senokot) 2 tab PO HSPRN PRN PRN Reason: Constipation Sodium Chloride (Flush - Normal Saline) 10 ml IVF Q12HR [facility] Last Admin: 10/24/17 10:54 Dose: 10 ml Sodium Chloride (Flush - Normal Saline) 10 ml IVF PRN PRN PRN Reason: Saline Flush Sodium Chloride ([place] Nasal [place] 0.65%) 0 ml EA NARE QIDPRN PRN PRN Reason: Nasal Congestion Temazepam (Restoril) 15 mg PO HSPRN PRN PRN Reason: Insomnia
[2017-10-24] MEDS ORDERED: Magnesium 2 GM/NS 0.9% 100 ML 2 GM in Premix Bag 1 BAG IVPB SCH (23:45)
[2017-10-25] MEDS ORDERED: Magnesium 2 GM/NS 0.9% 100 ML 2 GM in Premix Bag 1 BAG IVPB SCH (06:30)
[2017-10-25] MEDS: Magnesium Sulfate 4 GM in Sodium Chloride 0.9% 250 ML 250 ML IVPB SCH ×2 (08:40→09:35)
--- NOTE | 2017-10-25 08:41 | EKG ---
Test Reason : STAT Blood Pressure : / mmHG Vent. Rate : 095 BPM Atrial Rate : 115 BPM P-R Int : 000 ms QRS Dur : 116 ms QT Int : 352 ms P-R-T Axes : 000 040 211 degrees QTc Int : 442 ms Atrial fibrillation LBBB Low voltage QRS Cannot rule out Anteroseptal infarct , age undetermined Abnormal ECG When compared with ECG of 14-AUG-2017 13:01, Atrial fibrillation has replaced Sinus rhythm Left bundle branch block is no longer Present Minimal criteria for Anteroseptal infarct are now Present Confirmed by Trice YANG ([id number]) on 10/25/2017 8:41:06 AM Referred By: MICK Confirmed By:Trice YANG
[2017-10-25] MEDS: Aspirin 325 MG TAB PO SCH (08:46)
[2017-10-25] MEDS: Saccharomyces boulardii 250 MG CAP PO SCH (08:46)
[2017-10-25] MEDS: Famotidine 20 MG TAB PO SCH (08:46)
--- NOTE | 2017-10-25 08:46 | EKG ---
Test Reason : STAT Blood Pressure : / mmHG Vent. Rate : 096 BPM Atrial Rate : 054 BPM P-R Int : 000 ms QRS Dur : 118 ms QT Int : 394 ms P-R-T Axes : 000 -03 161 degrees QTc Int : 497 ms Atrial fibrillation with premature ventricular or aberrantly conducted complexes Low voltage QRS Possible Anterolateral infarct (cited on or before 20-OCT-2017) Abnormal ECG When compared with ECG of 20-OCT-2017 19:52, (Unconfirmed) Serial changes of Anterior infarct Present Confirmed by Triec YANG ([id number]) on 10/25/2017 8:46:06 AM Referred By: Confirmed By:Trice YANG
[2017-10-25] MEDS: Cyanocobalamin (Vitamin B-12) 1,000 MCG TAB PO SCH (08:47)
[2017-10-25] MEDS: Lactinex Tablet PO SCH ×2 (08:47→19:58)
[2017-10-25] MEDS: Folic Acid 1 MG TAB PO SCH ×2 (08:47→19:58)
[2017-10-25] MEDS: Docusate 100 MG CAP PO SCH ×2 (08:47→19:58)
[2017-10-25] MEDS: Atorvastatin Calcium 20 MG TAB PO SCH (08:48)
[2017-10-25] MEDS: Multivit, Therapeutic 1 TAB PO SCH (08:49)
[2017-10-25] MEDS: Meropenem 500 MG, Admixture Fee 1 EACH in Sterile Water 10 ML SLOW IVP SCH ×2 (10:02→19:58)
[2017-10-25] MEDS: Sodium Chloride 0.9% 1,000 ML IV SCH ×2 (10:05→20:01)
--- NOTE | 2017-10-25 10:46 | PRG ---
DATE OF SERVICE: 10/25/2017 SUBJECTIVE: The patient is in good spirits. She had no complaints today. PHYSICAL EXAMINATION: VITAL SIGNS: Temperature is 98, pulse 62, blood pressure 104/50. She is not requiring vasopressor, but she has had some fluctuating blood pressures. 24-hour intake 2657, output 395. HEENT: Unremarkable. NECK: No JVD. CHEST: Clear to auscultation without wheezing. CARDIAC: S1 and S2 regular. ABDOMEN: Slightly distended. The drainage catheter remains in place. EXTREMITIES: No clubbing, cyanosis, or edema. LABORATORY DATA: No new labs were obtained today on this patient. ASSESSMENT: 1. Sepsis syndrome secondary to liver abscess. 2. Cholangiocarcinoma. 3. Status post acute respiratory failure. PLAN: I think she can probably move to the floor. She is a DNR. I would not anticipate any further need for vasopressors at this time. Her cortisol level is inappropriately low for this degree of se psis. Therefore, I would recommend starting hydrocortisone for the next few days.
--- NOTE | 2017-10-25 12:07 | PDOC.PN ---
- Subjective Encounter Start Date: 10/25/17 Encounter Start Time: 07:40 pt is not on vasopressure, her BP goes low but she remains asymptomatic - Objective Resuscitation Status: Resuscitation Status DNR:Do Not Resuscitate MAR Reviewed: Yes Vital Signs & Weight: Vital Signs (12 hours) Temp Pulse Resp Pulse Ox 10/25/17 08:00 97.4 F L 74 17 97 10/25/17 07:16 98 10/25/17 07:11 67 21 H 98 10/25/17 04:00 98 F 10/25/17 00:50 72 18 96 Weight Admit Weight 152 lb 8.006 oz Weight 173 lb 4.533 oz Most Recent Monitor Data Heart Rate from ECG 78 NIBP 124/43 NIBP BP-Mean 93 Respiration from ECG 25 SpO2 92 I&O: 10/24/17 10/25/17 10/26/17 06:59 06:59 06:59 Intake Total 3232.7 2657 240 Output Total 900 395 85 Balance 2332.7 2262 155 Result Diagrams: 10/24/17 07:13 10/24/17 07:13 Additional Labs: Accuchecks 10/25/17 10/25/17 10/24/17 05:43 00:27 17:21 POC Glucose 76 66 L 80 10/24/17 14:52 POC Glucose 81 EKG Reviewed by me: Yes (afib) Phys Exam - Physical Examination Constitutional: NAD HEENT: PERRLA, moist MMs Neck: no JVD, supple Respiratory: no wheezing, no rales, no rhonchi Cardiovascular: RRR, no significant murmur, no rub Gastrointestinal: soft, non-tender, no distention, positive bowel sounds drain+ Musculoskeletal: pulses present, edema present Neurological: non-focal, normal sensation Lymphatic: no nodes Psychiatric: normal affect, A&O x 3 Skin: no rash, normal turgor Dx/Plan (1) Hypotension Status: Resolved (2) Acute kidney failure Status: Acute (3) Atrial fibrillation Code(s): I48.91 - UNSPECIFIED ATRIAL FIBRILLATION Status: Acute Qualifiers: Atrial fibrillation type: paroxysmal Qualified Code(s): I48.0 - Paroxysmal atrial fibrillation (4) Abnormal LFTs Code(s): R79.89 - OTHER SPECIFIED ABNORMAL FINDINGS OF BLOOD CHEMISTRY Status : Acute (5) Abscess, hepatic Code(s): K75.0 - ABSCESS OF LIVER Status: Acute (6) Bacteremia due to Klebsiella pneumoniae Code(s): R78.81 - BACTEREMIA Status: Acute (7) Folate deficiency Code(s): E53.8 - DEFICIENCY OF OTHER SPECIFIED B GROUP VITAMINS Status: Acute (8) UTI (urinary tract infection) Status: Acute (9) Anemia, macrocytic Code(s): D53.9 - NUTRITIONAL ANEMIA, UNSPECIFIED Status: Chronic (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 (11) Dyslipidemia Code(s): E78.5 - HYPERLIPIDEMIA, UNSPECIFIED Status: Chronic (12) Hypertension Code(s): I10 - ESSENTIAL (PRIMARY) HYPERTENSION Status: Chronic (13) Hypomagnesemia Code(s): E83.42 - HYPOMAGNESEMIA Status: Acute (14) Hypoalbuminemia due to protein-calorie malnutrition Code(s): E46 - UNSPECIFIED PROTEIN-CALORIE MALNUTRITION Status: Acute - Plan cont current plan of care, plan discussed w/ family, roberto catheter, continue antibiotics, PT/OT, social media project manager, respiratory therapy * now stable, did not require any vasopressure * steroid started today * will consider transfer to medical * medication reviewed as below * symptomatic treatment * HR is controlled and not a candidate for anticoagulation * will repeat labs tomorrow * replace magnesium * left voice mail to daughter. Review of Systems - Review of Systems ENT: negative: Ear Pain, Ear Discharge, Nose Pain, Nose Discharge, Nose Congestion, Mouth Pain, Mouth Swelling, Throat Pain, Throat Swelling, Other Respiratory: negative: Cough, Dry, Shortness of Breath, Hemoptysis, SOB with Excertion, Pleuritic Pain, Sputum, Wheezing Cardiovascular: negative: Chest Pain, Palpitations, Orthopnea, Paroxysmal Noc. Dyspnea, Edema, Light Headedness, Other Gastrointestinal: negative: Nausea, Vomiting, Abdominal Pain, Diarrhea, Constipation, Melena, Hematochezia, Other Genitourinary: negative: Dysuria, Frequency, Incontinence, Hematuria, Retention , Other Musculoskeletal: negative: Neck Pain, Shoulder Pain, Arm Pain, Back Pain, Hand Pain, Leg Pain, Foot Pain, Other - Medications/Allergies Allergies/Adverse Reactions: Allergies Allergy/AdvReac Type Severity Reaction Status Date / Time No Known Allergies Allergy Verified 08/14/17 17:19 Medications: Current Medications Acetaminophen (Tylenol) 325 mg PO Q6H PRN PRN Reason: Headache/Fever or Pain Acidophilus (Floranex) 1 tab PO BID [facility] Last Admin: 10/25/17 08:47 Dose: 1 tab Al Hydroxide/Mg Hydroxide (Maalox) 15 ml PO Q4H PRN PRN Reason: Heartburn or Indigestion Albuterol/Ipratropium (Duoneb) 3 ml NEB [id number] [facility] Last Admin: 10/25/17 07:11 Dose: 3 ml Artificial Tears (Tears Naturale) 0 drop EA EYE PRN PRN PRN Reason: Dry Eyes Aspirin (Aspirin) 325 mg PO DAILY [facility] Last Admin: 10/25/17 08:46 Dose: 325 mg Atorvastatin Calcium (Lipitor) 20 mg PO DAILY [facility] Last Admin: 10/25/17 08:48 Dose: 20 mg Cholecalciferol (Vitamin D3) 1,000 units PO DAILY [facility] Last Admin: 10/25/17 08:55 Dose: 1,000 units Cyanocobalamin (Vitamin B-12) 1,000 mcg PO DAILY [facility] Last Admin: 10/25/17 08:47 Dose: 1,000 mcg Docusate Sodium (Colace) 100 mg PO BID [facility] Last Admin: 10/25/17 08:47 Dose: 100 mg Famotidine (Pepcid) 20 mg PO QAM [facility] Last Admin: 10/25/17 08:46 Dose: 20 mg Folic Acid (Folvite) 1 mg PO BID [facility] Last Admin: 10/25/17 08:47 Dose: 1 mg Guaifenesin (Robitussin Sf) 200 mg PO Q4H PRN PRN Reason: Cough Hydrocortisone Sodium Succinate (Solu-Cortef) 100 mg IVP Q6HR [facility] Sodium Chloride (Normal Saline 0.9%) 1,000 mls @ 100 mls/hr IV .Q10H [facility] Last Admin: 10/25/17 10:05 Dose: 1,000 mls Meropenem 500 mg/Miscellaneous Medication 1 each/ Sterile Water 10 mls @ 120 mls/hr SLOW IVP Q12HR [facility] Last Admin: 10/25/17 10:02 Dose: 10 mls Loratadine (Claritin) 10 mg PO DAILYPRN PRN PRN Reason: Sinus Symptoms Magnesium Hydroxide (Milk Of Magnesium) 30 ml PO DAILYPRN PRN PRN Reason: Constipation Mineral Oil/White Petrolatum (Eucerin Cream) 0 gm TOP BIDPRN PRN PRN Reason: Dry Skin Multivitamins (Theragran) 1 tab PO DAILY [facility] Last Admin: 10/25/17 08:49 Dose: 1 tab Ccu Electrolyte (Replacement Protocol) 0 each FS PRN PRN PRN Reason: FOR ELECTROLYTE REPLACEMENT Ondansetron HCl (Zofran Odt) 4 mg PO Q6H PRN PRN Reason: Nausea/Vomiting Ondansetron HCl (Zofran) 4 mg IVP Q6H PRN PRN Reason: Nausea/Vomiting Polyethylene Glycol (Miralax) 17 gm PO DAILY PRN PRN Reason: Constipation Saccharomyces Boulardii (Florastor) 250 mg PO DAILY [facility] Last Admin: 10/25/17 08:46 Dose: 250 mg Senna (Senokot) 2 tab PO HSPRN PRN PRN Reason: Constipation Sodium Chloride (Flush - Normal Saline) 10 ml IVF Q12HR [facility] Last Admin: 10/25/17 08:54 Dose: 10 ml Sodium Chloride (Flush - Normal Saline) 10 ml IVF PRN PRN PRN Reason: Saline Flush Sodium Chloride ([place] Nasal [place] 0.65%) 0 ml EA NARE QIDPRN PRN PRN Reason: Nasal Congestion Temazepam (Restoril) 15 mg PO HSPRN PRN PRN Reason: Insomnia
[2017-10-25] MEDS: Hydrocortisone Sod Succ/PF 100 mg/2 ml Vial IVP SCH ×3 (12:15→23:43)
[2017-10-25] MEDS: COLISTIMETHATE IVPB SCH (21:27)
[2017-10-25] MEDS: SODIUM CHLORIDE 0.9% IVPB SCH (21:27)
[2017-10-26] MEDS: Hydrocortisone Sod Succ/PF 100 mg/2 ml Vial IVP SCH ×4 (05:23→23:53)
[2017-10-26 06:20] LABS: ALT (SGPT) 18 U/L (8-55); AST (SGOT) 84 U/L (5-34); Alkaline Phosphatase 733 U/L (40-150); Anion Gap 15 mmol/L (10-20); BUN (Urea Nitrogen) 24 mg/dL (9.8-20.1); Bilirubin, Total 1.6 mg/dL (0.2-1.2); Calc. Creatinine Clearance 24 mL/min (70-130); Calcium 7.8 mg/dL (7.8-10.44); Carbon Dioxide 18 mmol/L (23-31); Chloride 109 mmol/L (98-107); Estimated GFR-MDRD 22; Globulin 3.4 g/dL (2.4-3.5); Magnesium 2.1 mg/dL (1.6-2.6); Protein, Total 5.3 g/dL (6.0-8.3)
[2017-10-26 06:45] LABS: Band 9 % (5-11); Hematocrit 30.6 % (36.0-47.0); Mean Platelet Volume 7.2 fL (7.4-10.4); Neutrophil 67 % (42-75); Red Blood Cell (RBC) Count 3.03 mill/uL (4.20-5.40); White Blood Cell (WBC) Count 7.9 thou/uL (4.8-10.8)
[2017-10-26] MEDS ORDERED: ALL ABX IVPB PRN (07:05)
[2017-10-26] MEDS: Multivit, Therapeutic 1 TAB PO SCH (08:59)
[2017-10-26] MEDS: Famotidine 20 MG TAB PO SCH (08:59)
[2017-10-26] MEDS: Lactinex Tablet PO SCH ×3 (08:59→20:22)
[2017-10-26] MEDS: Aspirin 325 MG TAB PO SCH (08:59)
[2017-10-26] MEDS: Saccharomyces boulardii 250 MG CAP PO SCH (08:59)
[2017-10-26] MEDS: Atorvastatin Calcium 20 MG TAB PO SCH (08:59)
[2017-10-26] MEDS: Docusate 100 MG CAP PO SCH ×3 (09:00→20:22)
[2017-10-26] MEDS: Folic Acid 1 MG TAB PO SCH ×2 (09:00→20:17)
[2017-10-26] MEDS: Cyanocobalamin (Vitamin B-12) 1,000 MCG TAB PO SCH (09:00)
[2017-10-26] MEDS: Meropenem 500 MG, Admixture Fee 1 EACH in Sterile Water 10 ML SLOW IVP SCH ×2 (10:28→20:18)
--- NOTE | 2017-10-26 11:47 | PDOC.PN ---
- Subjective Encounter Start Date: 10/26/17 Encounter Start Time: 08:30 Patient seen and examined. No new complaints. No overnight events, pt does not have BM for last few days - Objective Resuscitation Status: Resuscitation Status DNR:Do Not Resuscitate MAR Reviewed: Yes Vital Signs & Weight: Vital Signs (12 hours) Temp Pulse Resp BP Pulse Ox 10/26/17 09:06 97.4 F L 64 20 134/72 95 10/26/17 07:51 86 15 94 L Weight Admit Weight 152 lb 8.006 oz Weight 173 lb 4.533 oz Most Recent Monitor Data Heart Rate from ECG 75 NIBP 108/60 NIBP BP-Mean 76 Respiration from ECG 17 SpO2 91 I&O: 10/25/17 10/26/17 10/27/17 06:59 06:59 06:59 Intake Total 2657 1520 Output Total 395 435 Balance 2262 1085 Result Diagrams: 10/26/17 05:40 10/26/17 05:40 Additional Labs: Accuchecks 10/26/17 10/26/17 10/25/17 05:17 01:00 21:41 POC Glucose 88 85 96 Phys Exam - Physical Examination Constitutional: NAD HEENT: PERRLA, moist MMs, sclera anicteric Neck: no JVD, supple Respiratory: no wheezing, no rales, no rhonchi Cardiovascular: RRR, no significant murmur, no rub Gastrointestinal: soft, non-tender, no distention, positive bowel sounds drain+ Musculoskeletal: pulses present, edema present Neurological: non-focal, normal sensation Lymphatic: no nodes Psychiatric: normal affect, A&O x 3 Skin: no rash, normal turgor Dx/Plan (1) Hypotension Status: Resolved (2) Acute kidney failure Status: Acute (3) Atrial fibrillation Code(s): I48.91 - UNSPECIFIED ATRIAL FIBRILLATION Status: Acute Qualifiers: Atrial fibrillation type: paroxysmal Qualified Code(s): I48.0 - Paroxysmal atrial fibrillation (4) Abnormal LFTs Code(s): R79.89 - OTHER SPECIFIED ABNORMAL FINDINGS OF BLOOD CHEMISTRY Status : Acute (5) Abscess, hepatic Code(s): K75.0 - ABSCESS OF LIVER Status: Acute (6) Bacteremia due to Klebsiella pneumoniae Code(s): R78.81 - BACTEREMIA Status: Acute (7) Folate deficiency Code(s): E53.8 - DEFICIENCY OF OTHER SPECIFIED B GROUP VITAMINS Status: Acute (8) UTI (urinary tract infection) Status: Acute (9) Anemia, macrocytic Code(s): D53.9 - NUTRITIONAL ANEMIA, UNSPECIFIED Status: Chronic (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 (11) Dyslipidemia Code(s): E78.5 - HYPERLIPIDEMIA, UNSPECIFIED Status: Chronic (12) Hypertension Code(s): I10 - ESSENTIAL (PRIMARY) HYPERTENSION Status: Chronic (13) Hypomagnesemia Code(s): E83.42 - HYPOMAGNESEMIA Status: Acute (14) Hypoalbuminemia due to protein-calorie malnutrition Code(s): E46 - UNSPECIFIED PROTEIN-CALORIE MALNUTRITION Status: Acute - Plan cont current plan of care, continue antibiotics, PT/OT, 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 Review of Systems - Review of Systems Constitutional: Weakness. negative: Fever, Chills, Sweats, Malaise, Other Eyes: negative: Pain, Vision Change, Conjunctivae Inflammation, Eyelid Inflammation, Redness, Other ENT: negative: Ear Pain, Ear Discharge, Nose Pain, Nose Discharge, Nose Congestion, Mouth Pain, Mouth Swelling, Throat Pain, Throat Swelling, Other Respiratory: negative: Cough, Dry, Shortness of Breath, Hemoptysis, SOB with Excertion, Pleuritic Pain, Sputum, Wheezing Cardiovascular: negative: Chest Pain, Palpitations, Orthopnea, Paroxysmal Noc. Dyspnea, Edema, Light Headedness, Other Gastrointestinal: Constipation. negative: Nausea, Vomiting, Abdominal Pain, Diarrhea, Melena, Hematochezia, Other Genitourinary: negative: Dysuria, Frequency, Incontinence, Hematuria, Retention , Other Musculoskeletal: negative: Neck Pain, Shoulder Pain, Arm Pain, Back Pain, Hand Pain, Leg Pain, Foot Pain, Other - Medications/Allergies Allergies/Adverse Reactions: Allergies Allergy/AdvReac Type Severity Reaction Status Date / Time No Known Allergies Allergy Verified 08/14/17 17:19 Medications: Current Medications Acetaminophen (Tylenol) 325 mg PO Q6H PRN PRN Reason: Headache/Fever or Pain Acidophilus (Floranex) 1 tab PO BID [facility] Last Admin: 10/26/17 08:59 Dose: 1 tab Al Hydroxide/Mg Hydroxide (Maalox) 15 ml PO Q4H PRN PRN Reason: Heartburn or Indigestion Albumin Human (Albumin 25%) 25 gm IVPB 0703 [facility] Stop: 10/29/17 10:00 Albuterol/Ipratropium (Duoneb) 3 ml NEB [id number] [facility] Last Admin: 10/26/17 07:51 Dose: 3 ml Artificial Tears (Tears Naturale) 0 drop EA EYE PRN PRN PRN Reason: Dry Eyes Aspirin (Aspirin) 325 mg PO DAILY [facility] Last Admin: 10/26/17 08:59 Dose: 325 mg Atorvastatin Calcium (Lipitor) 20 mg PO DAILY [facility] Last Admin: 10/26/17 08:59 Dose: 20 mg Cholecalciferol (Vitamin D3) 1,000 units PO DAILY [facility] Last Admin: 10/26/17 08:59 Dose: 1,000 units Cyanocobalamin (Vitamin B-12) 1,000 mcg PO DAILY [facility] Last Admin: 10/26/17 09:00 Dose: 1,000 mcg Docusate Sodium (Colace) 100 mg PO BID [facility] Last Admin: 10/26/17 09:00 Dose: 100 mg Famotidine (Pepcid) 20 mg PO QAM [facility] Last Admin: 10/26/17 08:59 Dose: 20 mg Folic Acid (Folvite) 1 mg PO BID [facility] Last Admin: 10/26/17 09:00 Dose: 1 mg Guaifenesin (Robitussin Sf) 200 mg PO Q4H PRN PRN Reason: Cough Hydrocortisone Sodium Succinate (Solu-Cortef) 100 mg IVP Q6HR [facility] Last Admin: 10/26/17 05:23 Dose: 100 mg Meropenem 500 mg/Miscellaneous Medication 1 each/ Sterile Water 10 mls @ 120 mls/hr SLOW IVP Q12HR [facility] Last Admin: 10/26/17 10:28 Dose: 10 mls Loratadine (Claritin) 10 mg PO DAILYPRN PRN PRN Reason: Sinus Symptoms Magnesium Hydroxide (Milk Of Magnesium) 30 ml PO DAILYPRN PRN PRN Reason: Constipation Mineral Oil/White Petrolatum (Eucerin Cream) 0 gm TOP BIDPRN PRN PRN Reason: Dry Skin Miscellaneous Medication (Pharmacy To Dose) 0 each IVPB DAILYPRN PRN PRN Reason: LABS Multivitamins (Theragran) 1 tab PO DAILY [facility] Last Admin: 10/26/17 08:59 Dose: 1 tab Ccu Electrolyte (Replacement Protocol) 0 each FS PRN PRN PRN Reason: FOR ELECTROLYTE REPLACEMENT Ondansetron HCl (Zofran Odt) 4 mg PO Q6H PRN PRN Reason: Nausea/Vomiting Ondansetron HCl (Zofran) 4 mg IVP Q6H PRN PRN Reason: Nausea/Vomiting Polyethylene Glycol (Miralax) 17 gm PO DAILY PRN PRN Reason: Constipation Saccharomyces Boulardii (Florastor) 250 mg PO DAILY [facility] Last Admin: 10/26/17 08:59 Dose: 250 mg Senna (Senokot) 2 tab PO HSPRN PRN PRN Reason: Constipation Sodium Chloride (Flush - Normal Saline) 10 ml IVF Q12HR [facility] Last Admin: 10/26/17 10:29 Dose: 10 ml Sodium Chloride (Flush - Normal Saline) 10 ml IVF PRN PRN PRN Reason: Saline Flush Sodium Chloride ([place] Nasal [place] 0.65%) 0 ml EA NARE QIDPRN PRN PRN Reason: Nasal Congestion Temazepam (Restoril) 15 mg PO HSPRN PRN PRN Reason: Insomnia
[2017-10-26] MEDS ORDERED: Fleet Enema 133 ML BOT PR SCH (12:00)
--- NOTE | 2017-10-26 13:09 | PQF ---
CLINICAL DOCUMENTATION IMPROVEMENT CLARIFICATION FORM: ICD-10 Updated PLEASE DO AN ADDENDUM TO THE PROGRESS NOTE WITH ANY DOCUMENTATION UPDATES OR ADDITIONS AND CARRY THROUGH TO DC SUMMARY. THANK YOU. DATE: 10/26/17 ATTN: Dr. Freedman Please exercise your independent, professional judgment in responding to the clarification form. Clinical indicators are provided on the bottom of this form for your review Please check appropriate box(s): [ ] Sepsis due to: Due to: [ ] Device (please specify) [ x ] Severe sepsis with acute organ dysfunction of: _acute kidney failure (Examples: respiratory failure, encephalopathy, acute kidney failure, other) [ ] Localized infection without sepsis [ ] Other diagnosis [ ] Unable to determine In addition, please specify: Present on Admission (POA): [x ] Yes [ ] No [ ] Unable to determine For continuity of documentation, please document condition throughout progress notes and discharge summary. Thank You. CLINICAL INDICATORS - SIGNS / SYMPTOMS / LABS H&P: KLEBSIELLA PNEUMONIA BACTEREMIA SUSPECTED SOURCE APPEARS TO BE INTRAABDOMINAL CARDIOLOGY PN 10/21: SEPSIS 10/22: SEPSIS W/ LIVER ABSCESS. EVENT NOTE 10/23: HYPOTENSIVE W SBP IN 70S. TRANSFER TO CCU . START LEVOPHED PULM. CONSULT 10/23: SEPSIS SYNDROME 2/2 LIVER ABSCESS & CHRONIC URINARY TRACT INFECTIONS. ACUTE RESPIRATORY FAILURE. RISKS: H&P: HX OF ENTEROCOCCUS INFECTION, COMPLETED AUGMENTIN ON 10/13/17. CHOLANGIOCARCINOMA W/ LIVER ABSCESS W/ INDWELLING INTRAABDOMINAL DRAIN. MODERATE PROTEIN-CALORIE MALNUTRITION. TREATMENTS: CPOE: 10/16 VANCOMYCIN IV 1700. DC'D 10/20 CPOE: 10/22 LEVOPHED 250 ML IV TO KEEP MAP >65. DC'D 10/24 ORDER 10/23: MEROPENEM 500MG IV Q 12 HR Thank you, No (This form is maintained as a part of the permanent medical record) 2015 [employer] All Rights Reserved No Milton RN, BSN [email or web address] Office: [phone] [facility]
[2017-10-26] MEDS ORDERED: Albumin 25% 25 GM/100 ML BOT IVPB SCH (15:30)
--- NOTE | 2017-10-27 01:35 | CON ---
DATE OF CONSULTATION: 10/26/2017 CONSULTING PHYSICIAN: Dr. Freedman. REASON FOR CONSULTATION: Acute kidney injury. REASON FOR ADMISSION: Positive blood culture. HISTORY OF PRESENT ILLNESS: This is an 86-year-old female with a past medical history of cholangioca rcinoma, hypertension, chronic indwelling Rascon, urinary retention, enterococcal infection, transient ischemic attack came to the hospital with above complaints. Patient was admitted on 10/16/2017 with a creatinine of 0.9 and this morning was found to be 2.1 and Nephrology is consulted. Patient had a complicated course during this admission with multiple consultation. She also had a hypertensive on 10/26/2017. Initially, she was also making good amount of urine, which has dropped and she also sta rted having some altered mentation today and family history is really concern. Patient had extensive GI workup which showed cholangiocarcinoma and had admissions in [place] and also in [facility] recently. Patient is not able to give good history. Her daughter was at the bedside. PAST MEDICAL HISTORY: Positive for cholangiocarcinoma, chronic indwelling Rascon, hypertension, urina ry retention, and transient ischemic attack. PAST SURGICAL HISTORY: Biliary stent placement, PICC line placement. ALLERGIES: No known drug allergies. HOME MEDICATIONS: Carvedilol, Floranex, losartan, Zofran and potassium. ALLERGIES: No known drug allergies. SOCIAL HISTORY: She lives in a intermediate at [facility] and no smoking, alcohol or illici t drugs abuse. FAMILY HISTORY: Positive for heart disease. REVIEW OF SYSTEMS: The following complete review of systems was negative, unless otherwise mentioned in the HPI or below: CONSTITUTIONAL: Weight loss or gain, ability to conduct usual activities. SKIN: Rash, itching. EYES: Double vision, pain. ENT/MOUTH: Nose bleeding, neck stiffness, pain, tenderness. CARDIOVASCULAR: Palpitations, dyspnea on exertion, orthopnea. RESPIRATORY: Shortness of breath, wheezing, cough, hemoptysis, fever or night sweats. GASTROINTESTINAL: Poor appetite, abdominal pain, heartburn, nausea, vomiting, constipation, or diarr hea. GENITOURINARY: Urgency, frequency, dysuria, nocturia. MUSCULOSKELETAL: Pain, swelling. NEUROLOGIC/PSYCHIATRIC: Anxiety, depression. ALLERGY/IMMUNOLOGIC: Skin rash, bleeding tendency. PHYSICAL EXAMINATION: GENERAL: This is a well-built female, very somnolent. VITAL SIGNS: Temperature 97.6, pulse 65, respiratory 20, blood pressure 120/67. HEENT: Atraumatic, normocephalic. Oral mucosa is dry. NECK: Supple. CARDIOVASCULAR: S1, S2 heard. Rate and rhythm regular. RESPIRATORY: Clear. ABDOMEN: Soft, distended. MUSCULOSKELETAL: 2+ edema. DERMATOLOGIC: No skin rash. NEUROLOGIC: Somnolent. LABORATORY DATA: Hemoglobin is 9.7. Sodium 137, potassium 3.0, BUN 21, creatinine is 1.9. ASSESSMENT AND PLAN: 1. Acute kidney injury on chronic kidney disease. Renal function continues to get worse, multifacto rial, most likely hepatorenal. Rule out infection and could be acute tubular necrosis too given the hypoxic and hypertensive episode recently. Overall prognosis is poor. Agree with albumin for now, a void nephrotoxins. Renally dose all the medications and monitor. If no significant improvement, sharon g-term prognosis is very poor. We will avoid NSAIDs and contrast at this point and continue supporti ve care. Continue antibiotics and follow up cultures. Urine culture with Klebsiella. 2. Hypoalbuminemia. 3. Edema, not able to use much fluid. 4. Anemia, rule out any bleed. 5. Hypertension with recent hypotension and possible acute tubular necrosis. 6. Renally dose all the medicines. Avoid nephrotoxins. We will continue to monitor albumin. Monit or renal function closely. Continue discussion with the family. Plan discussed with the daughter at the bedside. Thank you for the consultation. We will follow.
[2017-10-27 05:36] LABS: #Lymphocytes 1.8 thou/uL (1.20-3.40); #Monocytes 0.3 thou/uL (0.11-0.59); #Neutrophils 6.3 thou/uL (1.40-6.50); %Basophils 0.1 % (0.0-1.0); %Eosinophils 0.2 % (0.0-10.0); %Lymphocytes 21.8 % (21.0-51.0); %Monocytes 3.9 % (0.0-10.0); Hematocrit 24.9 % (36.0-47.0); Mean Platelet Volume 7.1 fL (7.4-10.4); Red Blood Cell (RBC) Count 2.48 mill/uL (4.20-5.40); White Blood Cell (WBC) Count 8.5 thou/uL (4.8-10.8)
[2017-10-27] MEDS: Hydrocortisone Sod Succ/PF 100 mg/2 ml Vial IVP SCH ×2 (05:42→13:10)
[2017-10-27 05:58] LABS: Anion Gap 14 mmol/L (10-20); BUN (Urea Nitrogen) 28 mg/dL (9.8-20.1); BUN/Creatinine Ratio 11.91; Calc. Creatinine Clearance 23 mL/min (70-130); Carbon Dioxide 18 mmol/L (23-31); Chloride 110 mmol/L (98-107); Estimated GFR-MDRD 20; Phosphorus 5.5 mg/dL (2.3-4.7)
[2017-10-27] MEDS ORDERED: Albumin 25% 25 GM/100 ML BOT IVPB SCH ×2 (07:03→11:00)
[2017-10-27] MEDS: Meropenem 500 MG, Admixture Fee 1 EACH in Sterile Water 10 ML SLOW IVP SCH (08:48)
[2017-10-27] MEDS: Saccharomyces boulardii 250 MG CAP PO SCH (08:49)
[2017-10-27] MEDS: Docusate 100 MG CAP PO SCH (08:49)
[2017-10-27] MEDS: Lactinex Tablet PO SCH (08:49)
[2017-10-27] MEDS: Cyanocobalamin (Vitamin B-12) 1,000 MCG TAB PO SCH (08:50)
[2017-10-27] MEDS: Folic Acid 1 MG TAB PO SCH (08:50)
[2017-10-27] MEDS: Atorvastatin Calcium 20 MG TAB PO SCH (08:50)
[2017-10-27] MEDS: Multivit, Therapeutic 1 TAB PO SCH (08:50)
[2017-10-27] MEDS: Aspirin 325 MG TAB PO SCH (08:50)
[2017-10-27] MEDS: Famotidine 20 MG TAB PO SCH (08:50)
[2017-10-27 09:01] VITALS: BP 154/74; TEMP 97.4
--- NOTE | 2017-10-27 11:34 | PDOC.PN ---
- Subjective Encounter Start Date: 10/27/17 Encounter Start Time: 10:45 Patient seen and examined. No new complaints. No overnight events - Objective Resuscitation Status: Resuscitation Status DNR:Do Not Resuscitate MAR Reviewed: Yes Vital Signs & Weight: Vital Signs (12 hours) Temp Pulse Resp BP Pulse Ox 10/27/17 08:00 97.4 F L 77 20 154/74 H 94 L 10/27/17 07:06 84 16 94 L 10/27/17 04:00 97.2 F L 74 20 121/71 93 L 10/27/17 00:49 99 10/27/17 00:00 97.3 F L 73 20 118/62 95 Weight Admit Weight 152 lb 8.006 oz Weight 180 lb Most Recent Monitor Data Heart Rate from ECG 75 NIBP 108/60 NIBP BP-Mean 76 Respiration from ECG 17 SpO2 91 I&O: 10/26/17 10/27/17 10/28/17 06:59 06:59 06:59 Intake Total 1520 720 180 Output Total 435 150 Balance 1085 570 180 Result Diagrams: 10/27/17 04:29 10/27/17 04:29 Additional Labs: Accuchecks 10/27/17 10/27/17 10/27/17 11:02 04:58 00:48 POC Glucose 116 H 118 H 120 H 10/26/17 10/26/17 10/25/17 16:26 11:30 18:22 POC Glucose 108 111 H 97 Phys Exam - Physical Examination Constitutional: NAD HEENT: PERRLA, moist MMs Neck: no JVD, supple Respiratory: no wheezing, no rales, no rhonchi Cardiovascular: RRR, no significant murmur, no rub Gastrointestinal: soft, non-tender, no distention, positive bowel sounds Musculoskeletal: pulses present, edema present Neurological: non-focal, normal sensation Lymphatic: no nodes Psychiatric: normal affect Skin: no rash, normal turgor Dx/Plan (1) Hypotension Status: Resolved (2) Acute kidney failure Status: Acute (3) Atrial fibrillation Code(s): I48.91 - UNSPECIFIED ATRIAL FIBRILLATION Status: Acute Qualifiers: Atrial fibrillation type: paroxysmal Qualified Code(s): I48.0 - Paroxysmal atrial fibrillation (4) Abnormal LFTs Code(s): R79.89 - OTHER SPECIFIED ABNORMAL FINDINGS OF BLOOD CHEMISTRY Status : Acute (5) Abscess, hepatic Code(s): K75.0 - ABSCESS OF LIVER Status: Acute (6) Bacteremia due to Klebsiella pneumoniae Code(s): R78.81 - BACTEREMIA Status: Acute (7) Folate deficiency Code(s): E53.8 - DEFICIENCY OF OTHER SPECIFIED B GROUP VITAMINS Status: Acute (8) UTI (urinary tract infection) Status: Acute (9) Anemia, macrocytic Code(s): D53.9 - NUTRITIONAL ANEMIA, UNSPECIFIED Status: Chronic (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 (11) Dyslipidemia Code(s): E78.5 - HYPERLIPIDEMIA, UNSPECIFIED Status: Chronic (12) Hypertension Code(s): I10 - ESSENTIAL (PRIMARY) HYPERTENSION Status: Chronic (13) Hypomagnesemia Code(s): E83.42 - HYPOMAGNESEMIA Status: Acute (14) Hypoalbuminemia due to protein-calorie malnutrition Code(s): E46 - UNSPECIFIED PROTEIN-CALORIE MALNUTRITION Status: Acute - Plan cont current plan of care, plan discussed w/ family, social services specialist * daughter decided about hospice for her mother and pt also agreed for comfort care * hospice consulted and will consider discharge home hospice later today * continue selected home meds * medication reviewed as below * symptomatic treatment * will remove picc and drain before discharge * prognosis is poor. Review of Systems - Review of Systems Constitutional: Weakness, Malaise. negative: Fever, Chills, Sweats, Other ENT: negative: Ear Pain, Ear Discharge, Nose Pain, Nose Discharge, Nose Congestion, Mouth Pain, Mouth Swelling, Throat Pain, Throat Swelling, Other Respiratory: negative: Cough, Dry, Shortness of Breath, Hemoptysis, SOB with Excertion, Pleuritic Pain, Sputum, Wheezing Cardiovascular: negative: Chest Pain, Palpitations, Orthopnea, Paroxysmal Noc. Dyspnea, Edema, Light Headedness, Other Gastrointestinal: negative: Nausea, Vomiting, Abdominal Pain, Diarrhea, Constipation, Melena, Hematochezia, Other Genitourinary: negative: Dysuria, Frequency, Incontinence, Hematuria, Retention , Other Musculoskeletal: negative: Neck Pain, Shoulder Pain, Arm Pain, Back Pain, Hand Pain, Leg Pain, Foot Pain, Other - Medications/Allergies Allergies/Adverse Reactions: Allergies Allergy/AdvReac Type Severity Reaction Status Date / Time No Known Allergies Allergy Verified 08/14/17 17:19 Medications: Current Medications Acetaminophen (Tylenol) 325 mg PO Q6H PRN PRN Reason: Headache/Fever or Pain Acidophilus (Floranex) 1 tab PO BID [facility] Last Admin: 10/27/17 08:49 Dose: 1 tab Al Hydroxide/Mg Hydroxide (Maalox) 15 ml PO Q4H PRN PRN Reason: Heartburn or Indigestion Albumin Human (Albumin 25%) 25 gm IVPB [id number] [facility] Stop: 10/29/17 10:00 Last Admin: 10/27/17 06:16 Dose: 25 gm Albumin Human (Albumin 25%) 25 gm IVPB Q6H [facility] Stop: 10/27/17 17:01 Last Admin: 10/27/17 11:32 Dose: Not Given Albuterol/Ipratropium (Duoneb) 3 ml NEB [id number] [facility] Last Admin: 10/27/17 07:06 Dose: 3 ml Artificial Tears (Tears Naturale) 0 drop EA EYE PRN PRN PRN Reason: Dry Eyes Aspirin (Aspirin) 325 mg PO DAILY [facility] Last Admin: 10/27/17 08:50 Dose: 325 mg Atorvastatin Calcium (Lipitor) 20 mg PO DAILY [facility] Last Admin: 10/27/17 08:50 Dose: 20 mg Cholecalciferol (Vitamin D3) 1,000 units PO DAILY [facility] Last Admin: 10/27/17 08:50 Dose: 1,000 units Cyanocobalamin (Vitamin B-12) 1,000 mcg PO DAILY [facility] Last Admin: 10/27/17 08:50 Dose: 1,000 mcg Docusate Sodium (Colace) 100 mg PO BID [facility] Last Admin: 10/27/17 08:49 Dose: Not Given Famotidine (Pepcid) 20 mg PO QAM [facility] Last Admin: 10/27/17 08:50 Dose: 20 mg Folic Acid (Folvite) 1 mg PO BID [facility] Last Admin: 10/27/17 08:50 Dose: 1 mg Guaifenesin (Robitussin Sf) 200 mg PO Q4H PRN PRN Reason: Cough Hydrocortisone Sodium Succinate (Solu-Cortef) 100 mg IVP Q6HR [facility] Last Admin: 10/27/17 05:42 Dose: 100 mg Meropenem 500 mg/Miscellaneous Medication 1 each/ Sterile Water 10 mls @ 120 mls/hr SLOW IVP Q12HR [facility] Last Admin: 10/27/17 08:48 Dose: 10 mls Loratadine (Claritin) 10 mg PO DAILYPRN PRN PRN Reason: Sinus Symptoms Magnesium Hydroxide (Milk Of Magnesium) 30 ml PO DAILYPRN PRN PRN Reason: Constipation Mineral Oil/White Petrolatum (Eucerin Cream) 0 gm TOP BIDPRN PRN PRN Reason: Dry Skin Miscellaneous Medication (Pharmacy To Dose) 0 each IVPB DAILYPRN PRN PRN Reason: LABS Multivitamins (Theragran) 1 tab PO DAILY [facility] Last Admin: 10/27/17 08:50 Dose: 1 tab Ccu Electrolyte (Replacement Protocol) 0 each FS PRN PRN PRN Reason: FOR ELECTROLYTE REPLACEMENT Ondansetron HCl (Zofran Odt) 4 mg PO Q6H PRN PRN Reason: Nausea/Vomiting Ondansetron HCl (Zofran) 4 mg IVP Q6H PRN PRN Reason: Nausea/Vomiting Polyethylene Glycol (Miralax) 17 gm PO DAILY PRN PRN Reason: Constipation Saccharomyces Boulardii (Florastor) 250 mg PO DAILY [facility] Last Admin: 10/27/17 08:49 Dose: 250 mg Senna (Senokot) 2 tab PO HSPRN PRN PRN Reason: Constipation Sodium Chloride (Flush - Normal Saline) 10 ml IVF Q12HR [facility] Last Admin: 10/27/17 08:50 Dose: 10 ml Sodium Chloride (Flush - Normal Saline) 10 ml IVF PRN PRN PRN Reason: Saline Flush Sodium Chloride (Owsley Nasal Galt 0.65%) 0 ml EA NARE QIDPRN PRN PRN Reason: Nasal Congestion Temazepam (Restoril) 15 mg PO HSPRN PRN PRN Reason: Insomnia
--- NOTE | 2017-10-27 13:07 | DIS ---
DATE OF ADMISSION: 10/16/2017 DATE OF DISCHARGE: 10/27/2017 PRIMARY CARE PHYSICIAN: Kareem Jay M.D. DISCHARGE DISPOSITION: Home with home hospice. PRIMARY DISCHARGE DIAGNOSES: 1. Klebsiella pneumonia bacteremia. 2. Escherichia coli urinary tract infection. 3. Severe sepsis with acute organ dysfunction. 4. Septic shock. 5. Hypomagnesemia. 6. Abnormal liver function tests. 7. Atrial fibrillation with rapid ventricular response. 8. Physical deconditioning. 9. Liver abscess. 10. Acute kidney failure. SECONDARY DISCHARGE DIAGNOSES: Cholangiocarcinoma with liver abscess with indwelling intraabdominal drain, history of PICC line placement, urinary retention with Rascon catheter, hypertension, dyslipide triston, severe protein calorie malnutrition, hypoalbuminemia, abnormal liver function tests due to chola ngiocarcinoma, chronic normocytic anemia, severe physical deconditioning. PRIMARY PROCEDURE/OPERATION: None. RADIOLOGICAL INVESTIGATION: Echocardiography during this admission showed EF 50%-55%, AFIB with RVR. Abdomen and pelvis CT scan showed intraabdominal fluid collection. CT brain was negative for any a cute intracranial process. SIGNIFICANT LABORATORY DATA: WBC 8.5, hemoglobin 8.0, MCV 101, and platelets 246. INR 1.2. Sodium 138, creatinine 2.35, calcium 8.0, phosphorus 5.5, albumin 2.2. Urinalysis suggestive of UTI. Urine culture grew Klebsiella, blood culture negative, Enterococcus positive in liver abscess drain. DISCHARGE MEDICATIONS: The patient is discharged home with home hospice for comfort care. Patient w ill be on following medications: Aspirin 81 mg p.o. daily, Lipitor 20 mg p.o. daily, vitamin D3 1000 units p.o. daily, folic acid 1 mg p.o. daily, probiotic 1 tablet p.o. b.i.d., Zofran 4 mg q.6 hourly p.r.n. CONTRAINDICATIONS: None. CODE STATUS: DNR. INPATIENT CONSULTANTS: GI team was following for cholangiocarcinoma. Dr. Nelson was following for po sitive bacteremia. Dr. Jaquez was consulted for atrial fibrillation. Dr. Viera was consulted f or critical care illness. Dr. Martin was consulted for acute kidney failure. TEST RESULTS PENDING ON DISCHARGE: None. ALLERGIES: No known drug allergy. DISCHARGE PLAN: Post hospital, patient is discharged home with home hospice. Subsequently, patient will follow up with primary care physician. HOSPITAL COURSE: An 86-year-old female who was admitted by Dr. Brown Garcia, please see his H&P for f urther details. This patient was admitted for Klebsiella pneumoniae bacteremia, source of infection was intraabdominal from cholangiocarcinoma. She was also having Escherichia coli UTI. Patient was h aving cholangiocarcinoma and liver abscess and that required intraabdominal drain. She also had PICC line in place when she was admitted. She was also having urinary retention with indwelling Rascon ca theter. Patient's urinary tract infection was related with chronic indwelling Rascon catheter. She had a posi tive blood culture. Subsequently, her culture from liver abscess grew Enterococcus and urine culture grew Klebsiella. Here, repeat blood culture was negative. Dr. Nelson recommended to continue merope nem and colistin. Patient was also given initially vancomycin. Subsequently, vancomycin was discontinued. She was ini tially admitted in CCU and subsequently she was transferred to medical floor. She had prolonged and complicated hospital course. She developed AFIB and that is why she required telemetry transfer and after that patient was transferred to Oncology floor where she had a couple of times code green and r equired a stroke transfer and then CCU transfer. The patient was having AFIB with RVR. She was having hypotension. She was having acute kidney failu re. Her prognosis was not good. She has completed her IV antibiotic therapy while in hospital. Patient was becoming more and more weak and patient decided to go home with comfort care. The patien t's daughter also agreed with comfort care only and they do not want to prolong her poor quality of l vikash. At this point, patient has multiorgan failure type of picture and she is not doing overall well . Her long-term prognosis is very poor. Today, I had a lengthy discussion with the patient and patient's daughter and they all agreed with ho spice and comfort care at home. They do not want to go for correction. Hospice team evaluated and they agreed with hospice placement. At this point, we are removing drain, we are removing PICC line. Patient will have only oral medicat ion at home. Patient's family member understands her grave prognosis and they are only interested in her comfort care. Paperwork for discharge done and out of hospital DNR paperwork done. Total time spent on discharge day more than 30 minutes.
--- NOTE | 2017-10-28 05:55 | PRG ---
DATE OF SERVICE: 10/27/2017 SUBJECTIVE: Patient was seen and examined at bedside and overnight events noted. Patient denies any shortness of breath or chest pain or palpitation. No history of nausea or vomiting or diarrhea or f ever or chills or cramps. OBJECTIVE: GENERAL: This is an elderly female in no apparent distress. VITAL SIGNS: Temperature 97, pulse 77, respirations 20, blood pressure 154/74. HEENT: Atraumatic, normocephalic, oral mucosa is moist. NECK: Supple. CARDIOVASCULAR: S1, S2 heard, rate and rhythm regular. RESPIRATORY: Clear to auscultation. GASTROINTESTINAL: Abdomen is soft. MUSCULOSKELETAL: No tenderness, no edema. DERMATOLOGIC: No skin rash. NEUROLOGIC: Alert and awake and oriented x3, no focal neurologic deficits. Moving all the extremiti es. PSYCHIATRIC: Mood and affect normal. LABORATORY DATA: Potassium 3.7, BUN is 28, creatinine 2.35. ASSESSMENT AND PLAN: 1. Acute kidney injury. Renal function continues to get worse despite . 2. Hypoalbuminemia. 3. Edema. 4. Anemia. 5. Hypertension with recent hypotension. 6. Cholangiocarcinoma. Overall, prognosis is poor. Renal function continues to get worse. Family decided for comfort measu res and hospice. We will sign off.
== END 2017-10-27 18:08 | disposition hospice, home (50) | DRG 698 ==
LOC: T4-A 14:33 → 2NO 10-20 22:16 → ONC 10-22 15:59 → 2SE 10-22 18:32 → CCU 10-22 21:10 → T4-A 10-25 16:03
PROVIDERS: ADMIT Internal Medicine; ATTEND Internal Medicine
PROC: 5A09357 Assistance with Respiratory Ventilation, Less than 24 Consecutive Hours, Continuous Positive Airway Pressure (ICD-10-PCS; principal; 2017-10-22)
DX: T83.518A Infection and inflammatory reaction due to other urinary catheter, initial encounter (principal); A41.59 Other Gram-negative sepsis; J96.00 Acute respiratory failure, unspecified whether with hypoxia or hypercapnia; R65.21 Severe sepsis with septic shock; K75.0 Abscess of liver; N17.9 Acute kidney failure, unspecified; E44.0 Moderate protein-calorie malnutrition; K83.1 Obstruction of bile duct; C22.1 Intrahepatic bile duct carcinoma; N39.0 Urinary tract infection, site not specified; L97.329 Non-pressure chronic ulcer of left ankle with unspecified severity; I12.9 Hypertensive chronic kidney disease with stage 1 through stage 4 chronic kidney disease, or unspecified chronic kidney disease; I48.0 Paroxysmal atrial fibrillation; Z51.5 Encounter for palliative care; Z66 Do not resuscitate; E83.42 Hypomagnesemia; R33.9 Retention of urine, unspecified; Z23 Encounter for immunization; Z68.27 Body mass index [BMI] 27.0-27.9, adult; Z86.73 Personal history of transient ischemic attack (TIA), and cerebral infarction without residual deficits; N18.9 Chronic kidney disease, unspecified; Z16.24 Resistance to multiple antibiotics; E53.8 Deficiency of other specified B group vitamins; D53.9 Nutritional anemia, unspecified; E16.2 Hypoglycemia, unspecified
CPT/HCPCS: 36415; 36416; 36569; 70450; 71010; 74177; 80048; 80053; 80069; 80202; 81001; 81003; 81015; 82533; 82550; 82553; 82607; 82746; 82805; 83605; 83690; 83735; 84100; 84484; 85025; 85610; 85652; 85730; 86140; 87040; 87070; 87077; 87086; 87186; 87205; 90471; 90682; 93005; 93010; 93306; 93970; 94640; 94660; 96365; A4216; C1751; G0008; G8978-GP-CK; G8978-GP-CL; G8979-GP-CI; G8979-GP-CJ; G8987-GO-CK; G8988-GO-CI; G8996-GN-CI; G8997-GN-CI; J0770; J1644; J1720; J2185; J3370; J3475; J7050; J7620; P9047; Q2036